=== PATIENT | female | born 1975 | race Caucasian/White ===

== ENCOUNTER 2017-03-08 17:58 | Observation (INO) | payer OTHER ==
[~2017-03-08] VITALS: Ht 165.1 cm; Wt 167.0 kg
[~2017-03-08 17:58] MED LIST: AZIT250T PO; HYDR-79 PO; HYDR-971 PO; SULF1TAB24 PO; TRAM50TA PO
--- NOTE | 2017-03-08 18:09 | EKG ---
[address] [address] Test Date: 2017-03-08 Test Time: 18:04:13 Pat Name: JEANNINE HORTON Department: Room: Gender: F Chainer: HILDA : 1975 Requested By: EDSJ Order Number: [id number] Reading MD: Cehpe Rueda Measurements Intervals [place] Rate: 94 P: 31 OH: 168 QRS: 38 QRSD: 88 T: 19 QT: 364 QTc: 461 Interpretive Statements SINUS RHYTHM Electronically Signed On 03-14-2017 9:34:43 CDT by Chepe Rueda
--- NOTE | 2017-03-08 18:12 | ED.ADGEN ---
Past History Past Medical History: Anxiety, Depression, Other Past Surgical History: Cholecystectomy, Hysterectomy, Other Smoking: Cigarettes Alcohol Use: None Drug Use: None Adult General Chief Complaint Chief Complaint " I ve been hurting constant since about 3 pm.. here in my chest... and upper gastric... this has been going on .. for a while off and on. .. I did have a Stress test by Dr. Johnson about 5 yrs ago for same symptoms.. they said it was just my weight... I see Dr. Bermeo for everything else.." HPI HPI Patient is a 41 year old female who presents with above hx and complaints of chest pain. Pt. is rated 5/10 now, earlier it was 10/10. Pt. is taking some new weight lost meds..."Truvision"- Niacin, B12, Calcium , Vitamin Misc and Green Tea Ext. Trimethylglycine, Cafeine, Yohimbine, Dendrobium Alkaloids, Theacrine, Hordenine, Evodiamine, Bengali Ginseng. Patient denies any trauma. Patient denies any travel. Patient denies any drug use. Patient does smoke. Patient currently not on any antihypertensive meds. Review of Systems Review of Systems Constitutional: Denies fever or chills [] Eyes: Denies change in visual acuity, redness, or eye pain [] HENT: Denies nasal congestion or sore throat [] Respiratory: Denies cough or shortness of breath [] Cardiovascular: No additional information not addressed in HPI [] GI: Denies abdominal pain, nausea, vomiting, bloody stools or diarrhea [] : Denies dysuria or hematuria [] Musculoskeletal: Denies back pain or joint pain [] Integument: Denies rash or skin lesions [] Neurologic: Denies headache, focal weakness or sensory changes [] Endocrine: Denies polyuria or polydipsia [] Family History Family History Patient has history of cardiac disease with grandfather at age 39 Current Medications Current Medications Current Medications Medications (Trade) Dose Ordered Sig/Sonu Start Time Stop Time Status Last Admin Dose Admin Aspirin (Children'S Aspirin) 324 mg 1X ONCE 03/08/17 18:45 03/08/17 18:46 DC 03/08/17 19:15 324 MG Enoxaparin Sodium (Lovenox 150mg Syringe) 150 mg 1X ONCE 03/08/17 18:45 03/08/17 18:46 DC 03/08/17 19:15 150 MG Famotidine (Pepcid) 20 mg 1X ONCE 03/08/17 18:45 03/08/17 18:46 DC 03/08/17 19:15 20 MG Lorazepam 1 mg 1 mg 1X ONCE 03/08/17 18:45 03/08/17 18:46 DC 03/08/17 20:00 1 MG Morphine Sulfate (Morphine 10mg Syringe) 10 mg 1X ONCE 03/08/17 21:00 03/08/17 21:01 DC 03/08/17 20:50 10 MG Nitroglycerin (Nitro-Bid Oint) 1 inch 1X ONCE 03/08/17 18:45 03/08/17 18:46 DC 03/08/17 19:10 1 INCH Sodium Chloride (Iv Sodium Chloride 0.9% 1,000ml) 1,000 ml @ 1,000 mls/hr Q1H 03/08/17 18:29 03/08/17 19:28 DC 03/08/17 20:00 1,000 MLS/HR Allergies Allergies Allergies Coded Allergies Type Severity Reaction Last Updated Verified No Known Drug Allergies 05/06/16 No Physical Exam Physical Exam Constitutional: Moderate distress, non-toxic appearance. [] HENT: Normocephalic, atraumatic, bilateral external ears normal, oropharynx moist, no oral exudates, nose normal. [] Eyes: PERRLA, EOMI, conjunctiva normal, no discharge. [] Glasses Neck: Normal range of motion, no tenderness, supple, no stridor. More than 17 inches circumference Cardiovascular: Tachycardia Heart rate regular rhythm, no murmur, Lungs & Thorax: Bilateral breath sounds equal at apexes with scattered wheezes on auscultation [] Abdomen: Bowel sounds normal, soft, no tenderness, no masses, no pulsatile masses. Obese. Old surgical scars. Rectal exam heme-negative Skin: Warm, dry, no erythema, no rash. [] Back: No tenderness, no CVA tenderness. [] Extremities: No tenderness, no cyanosis, no clubbing, ROM intact, trace ankle edema. No cording appreciated. Neurologic: Alert and oriented X 3, normal motor function, normal sensory function, no focal deficits noted. [] Psychologic: Affect anxious, judgement normal, mood depressed Current Patient Data Vital Signs Vital Signs Date Time Temp Pulse Resp B/P Pulse Ox O2 Delivery O2 Flow Rate FiO2 03/08/17 21:00 101 20 141/63 92 03/08/17 20:50 Room Air 03/08/17 17:58 98.2 Lab Results Laboratory Tests Test 03/08/17 18:10 03/08/17 19:42 Glucose (Fingerstick) 103mg/dL (70-99) H White Blood Count 8.9x10^3/uL (4.0-11.0) Red Blood Count 4.32x10^6/uL (3.50-5.40) Hemoglobin 12.3g/dL (12.0-15.5) Hematocrit 37.0% (36.0-47.0) Mean Corpuscular Volume 86fL (79-100) Mean Corpuscular Hemoglobin 28pg (25-35) Mean Corpuscular Hemoglobin Concent 33g/dL (31-37) Red Cell Distribution Width 13.2% (11.5-14.5) Platelet Count 293x10^3/uL (140-400) Neutrophils (%) (Auto) 53% (31-73) Lymphocytes (%) (Auto) 34% (24-48) Monocytes (%) (Auto) 8% (0-9) Eosinophils (%) (Auto) 4% (0-3) H Basophils (%) (Auto) 1% (0-3) Neutrophils # (Auto) 4.7x10^3uL (1.8-7.7) Lymphocytes # (Auto) 3.0x10^3/uL (1.0-4.8) Monocytes # (Auto) 0.7x10^3/uL (0.0-1.1) Eosinophils # (Auto) 0.4x10^3/uL (0.0-0.7) Basophils # (Auto) 0.1x10^3/uL (0.0-0.2) Prothrombin Time 9.6SEC (9.4-11.4) Prothrombin Time INR 0.9 (0.9-1.1) PTT 24SEC (23-33) D-Dimer (Nadine) 0.30mg/L (0.00-0.50) Maternal Serum HCG Beta Subunit 2mIU/mL (0-6) Sodium Level 142mmol/L (136-145) Potassium Level 3.8mmol/L (3.5-5.1) Chloride Level 109mmol/L (98-107) H Carbon Dioxide Level 24mmol/L (21-32) Anion Gap 9 (6-14) Blood Urea Nitrogen 11mg/dL (7-20) Creatinine 0.7mg/dL (0.6-1.0) Estimated GFR (Cockcroft-Gault) 92.7 Glucose Level 113mg/dL (70-99) H Calcium Level 8.3mg/dL (8.5-10.1) L Magnesium Level 2.0mg/dL (1.8-2.4) Total Bilirubin 0.2mg/dL (0.2-1.0) Direct Bilirubin 0.1mg/dL (0.0-0.2) Aspartate Amino Transferase (AST) 11U/L (15-37) L Alanine Aminotransferase (ALT) 28U/L (14-59) Alkaline Phosphatase 96U/L (46-116) Creatine Kinase 44U/L (26-192) Creatine Kinase MB (Mass) 0.5ng/mL (0.0-3.6) Creatine Kinase MB Relative Index 1.1% (0-4) Troponin I Quantitative < 0.017ng/mL (0-0.055) FR-Buq-D-Type Natriuretic Peptide 22pg/mL (0-124) Total Protein 6.4g/dL (6.4-8.2) Albumin 3.1g/dL (3.4-5.0) L Lipase 234U/L (73-393) EKG EKG My interpretation of EKG shows a sinus rhythm at 94. No findings acute STEMI of contralateral changes [] Radiology/Procedures Radiology/Procedures My interpretation of chest x-ray shows no no acute cardiopulmonary findings. Some basilar atelectasis. [] Course & Med Decision Making Course & Med Decision Making Pertinent Labs and Imaging studies reviewed. (See chart for details) Discussed presentation, testing and treatment with , will admit for further eval. and tx. with consult to Cardiology- McSweyn. [] Final Impression Final Impression 1.Chest Pain[] 2. Hypertension 3. Morbid obesity 4. Tobacco Use Problems: Dragon Disclaimer Dragon Disclaimer This electronic medical record was generated, in whole or in part, using a voice recognition dictation system. ADIS GREENFIELD MD Mar 08, 2017 18:12
[2017-03-08] MEDS ORDERED: IV NORMAL SALINE 1,000ML 1,000 ML IV SCH (18:29)
[2017-03-08] MEDS ORDERED: LORAZEPAM 2 MG/ML VIAL IV ONE (18:45)
[2017-03-08] MEDS ORDERED: MORPHINE SULFATE 10 MG/ML SYRINGE. SQ ONE ×2 (18:45→21:00)
[2017-03-08] MEDS ORDERED: ENOXAPARIN ** NOTE DOSE ** SYRINGE SQ ONE (18:45)
[2017-03-08] MEDS ORDERED: NITROGLYCERIN OINT 1 GM PACKET. TP ONE (18:45)
[2017-03-08] MEDS ORDERED: ASPIRIN 81 MG TAB.CHEW PO ONE (18:45)
[2017-03-08] MEDS ORDERED: FAMOTIDINE 20 MG TABLET PO ONE (18:45)
[2017-03-08 19:56] LABS: BASO # 0.1 x10^3/uL (0.0-0.2); BASO % 1 % (0-3); EOS # 0.4 x10^3/uL (0.0-0.7); EOS % 4 % (0-3); HEMOGLOBIN 12.3 g/dL (12.0-15.5); LYMPH % 34 % (24-48); MEAN CORPUSCULAR HEMOGLOBIN 28 pg (25-35); MEAN CORPUSCULAR HGB CONC 33 g/dL (31-37); MEAN CORPUSCULAR VOLUME 86 fL (79-100); MONO # 0.7 x10^3/uL (0.0-1.1); MONO % 8 % (0-9); NEUT # 4.7 x10^3uL (1.8-7.7); NEUT % 53 % (31-73); PLATELET COUNT 293 x10^3/uL (140-400); RED BLOOD COUNT 4.32 x10^6/uL (3.50-5.40); RED CELL DISTRIBUTION WIDTH 13.2 % (11.5-14.5); WHITE BLOOD COUNT 8.9 x10^3/uL (4.0-11.0)
[2017-03-08 20:21] LABS: ALBUMIN 3.1 g/dL (3.4-5.0); CALCIUM 8.3 mg/dL (8.5-10.1); CREATININE 0.7 mg/dL (0.6-1.0); DIRECT BILIRUBIN 0.1 mg/dL (0.0-0.2); GFR 92.7; POTASSIUM 3.8 mmol/L (3.5-5.1); TOTAL BILIRUBIN 0.2 mg/dL (0.2-1.0); TOTAL PROTEIN 6.4 g/dL (6.4-8.2)
[2017-03-08] MEDS ORDERED: KETOROLAC 60 MG/2 ML VIAL. IM PRN (21:45)
[2017-03-08 22:15] VITALS: BP 170/83
[2017-03-08 22:37] LABS: BARBITURATES NEG (NEG); BENZODIAZEPINES NEG (NEG); CANNABINOIDS NEG (NEG); COCAINE NEG (NEG); METHADONE NEG (NEG); OPIATES POS (NEG); PHENCYCLIDINE NEG (NEG)
[2017-03-08 22:38] LABS: AMPHETAMINE/METHAMPHETAMINE NEG (NEG)
[2017-03-08 22:42] LABS: BILIRUBIN,URINE NEG (NEG); CLARITY,URINE CLEAR; COLOR,URINE STRAW; GLUCOSE,URINE NEG (NEG); NITRITE,URINE NEG (NEG); UROBILINOGEN,URINE 0.2 mg/dL (0.2 mg/dL)
[2017-03-08 22:43] LABS: AMORPHOUS SEDIMENT,UR PRESENT /HPF; BACTERIA,URINE FEW /HPF (0-FEW); RBC,URINE 0 /HPF (0-2); SQUAMOUS EPITHELIAL CELL,UR OCC /LPF; WBC,URINE OCC /HPF (0-4)
[2017-03-08] MEDS: ONDANSETRON PF 4 MG/2 ML VIAL. IV PRN (23:05)
[2017-03-08] MEDS: IV RINGERS SOLUTION,LACTATED 1,000 ML IV SCH (23:05)
[2017-03-08] MEDS ORDERED: CALC300T4 PO (23:59)
[2017-03-09] MEDS ORDERED: [UNRECOGNIZED DRUG - OTHER] PO (00:01)
--- NOTE | 2017-03-09 00:11 | ACF ---
Admission Criteria Forms CHEST PAIN Clinical Indications for Admission to Inpatient Care (Place 'X' for any and all applicable criteria): Admission is indicated for chest pain and ANY ONE of the following(1)(2)(3)(4)(5 ): [ ]I. Angina with acute coronary syndrome (Also use Myocardial Infarction or Angina guideline) [ ]II. Hemodynamic instability [ ]III. Angina needing acute intervention as indicated by ALL of the following( 11)(12): [ ]a) Unstable angina is present as indicated by angina that is ANY ONE of the following: [ ]i) New onset [ ]ii) Nocturnal [ ]iii) Prolonged at rest [ ]iv) Progressive [ ]b) Angina warrants acute intervention as indicated by ANY ONE of the following: [ ]i) Recurrent angina (e.g, not responding as previously to treatment) [ ]ii) Angina at rest or with low-level activities despite initial medical therapy [ ]iii) New or presumably new ST-segment depression on ECG [ ]iv) Signs or symptoms of heart failure (eg, dyspnea, pulmonary edema) [ ]v) New or worsening mitral regurgitation [ ]vi) Hemodynamic instability [ ]vii) Dangerous arrhythmia (eg, sustained ventricular tachycardia) [ ]viii) History of percutaneous coronary intervention within 6 months [ ]ix) History of coronary artery bypass graft surgery [ ]x) KIMBER risk score of 2 or greater[A] [ ]xi) History of Diabetes(14) [ ]xii) High-risk cardiac ischemia findings on noninvasive testing (e.g, echocardiogram, treadmill testing, nuclear scan) [ ]xiii) Chronic renal insufficiency (ie, estimated GFR less than 60 mL/min/1.732m) [ ]xiv) Left ventricular ejection fraction less than 40% [ ]IV. Evidence of RI (eg, cardiac biomarkers positive, ST-segment elevation on ECG) also use Myocardial Infarction Criteria Form. [ ]V. Pulmonary edema [ ]. Respiratory distress [ ]VII. Chest pain indicative of serious diagnosis other than coronary artery disease (eg, aortic dissection) [ ]VIII. Contraindications and/or Inappropriate clinical situations for Observational Care in patients with Chest Pain, when ANY ONE of the following is required: [ ]a) Patient with risk factor for pulmonary embolism, acute coronary syndrome and myocardial infarction (18) [ ]b) Patient with Pulmonary embolism require an average LOS of 4.3 days, therefore emergency department observation management is inappropriate 18,23 [ ]c) Painful condition/s in the elderly, have the highest rate of recidivism after emergency department observation management (10.8%) 20,21,22 [ ]d) Elevated cardiac biomarker requires intensive and exhaustive care (19) [X]IX. General contraindications and/or Inappropriate clinical situations for Observational Care in patients with Chest Pain, when ANY ONE of the following is required: [X]a) Prediction of prolongation of LOS based on ANY ONE of the following may be considered as a contraindication for observational care 2, 3, 4, 5, 6, 7, 8, 9, 10, 11 [ ]i) Age > 65 yrs. [ ]ii) Patient arriving by ambulance [ ]iii) Patient with high acuity [X]iv) Patient requiring vital sign monitoring [ ]v) Patient on IV medication [ ]b) Systolic blood pressures 180mmHg 3,12 [ ]c) Patient with altered mental status including delirium and other alteration of consciousness, (3) [ ]d) Patient whose discharge disposition will be to a intermediate home or rehabilitation home should not be managed in Emergency Department Observation Unit. CMS rule requires 3 days hospital stay before such placement. 3,13 [ ]e) Patient with failure to thrive due to broad array of etiologies 3,16,17 [ ]f) Inability to ambulate 3,14 Extended stay beyond goal length of stay may be needed for (1)(28): [ ]a) Specific condition diagnosed after evaluation (eg, pulmonary embolism, aortic dissection) [ ]b) Unstable angina [ ]c) Continued suspicion of acute coronary syndrome with inability to complete needed cardiac evaluation (eg, patient clinically unable to undergo stress testing) [ ]d) Myocardial infarction (Contents from ANGINA and CHEST PAIN clinical indications for admission to inpatient care have been integrated in this form) The original [facility] content created by [employer] has been revised. The portions of the content which have been revised are identified through the use of italic text or in bold, and [facility] has neither reviewed nor approved the modified material. All other unmodified content is copyright [facility]. Please see references footnoted in the original [facility] edition 2016 Admission Criteria Met?: Yes CASEY CARR Mar 09, 2017 00:11
[2017-03-09] MEDS: IV RINGERS SOLUTION,LACTATED 1,000 ML IV SCH ×3 (04:46→16:30)
[2017-03-09] MEDS ORDERED: IPRATRPIUM/ALBUTEROL 0.5/2.5MG 3 ML NEBU. ONE (04:47)
[2017-03-09 05:12] VITALS: BP 126/86
[2017-03-09] MEDS: IPRATRPIUM/ALBUTEROL 0.5/2.5MG 3 ML NEBU. NEB SCH ×3 (05:31→15:47)
--- NOTE | 2017-03-09 08:04 | RAD ---
Chest, 2 views, 03/08/2017: History: Chest pain Comparison is made to a study from 09/28/2016. The heart size and pulmonary vascularity are normal. There is mild bibasilar linear atelectasis and/or scarring. The lungs are otherwise clear. There is no evidence of pleural fluid. Minimal spurring is present in the spine. IMPRESSION: Mild bibasilar linear atelectasis and/or scarring.
[2017-03-09] MEDS: ONDANSETRON PF 4 MG/2 ML VIAL. IV PRN (08:46)
[2017-03-09] MEDS: KETOROLAC 15 MG/ML VIAL. IV PRN ×2 (08:47→17:26)
[2017-03-09] MEDS: NITROGLYCERIN OINT 1 GM PACKET. TP SCH ×2 (08:48→13:56)
[2017-03-09] MEDS ORDERED: ENOXAPARIN ** NOTE DOSE ** SYRINGE SQ SCH (09:00)
[2017-03-09] MEDS ORDERED: ASPIRIN 81 MG TAB.CHEW PO SCH (09:00)
[2017-03-09 09:47] LABS: BASO % 1 % (0-3); EOS # 0.2 x10^3/uL (0.0-0.7); EOS % 2 % (0-3); HEMATOCRIT 35.2 % (36.0-47.0); HEMOGLOBIN 11.5 g/dL (12.0-15.5); LYMPH # 2.2 x10^3/uL (1.0-4.8); LYMPH % 28 % (24-48); MEAN CORPUSCULAR HEMOGLOBIN 28 pg (25-35); MEAN CORPUSCULAR HGB CONC 33 g/dL (31-37); MEAN CORPUSCULAR VOLUME 87 fL (79-100); MONO # 0.5 x10^3/uL (0.0-1.1); MONO % 7 % (0-9); NEUT # 4.8 x10^3uL (1.8-7.7); NEUT % 63 % (31-73); PLATELET COUNT 265 x10^3/uL (140-400); RED BLOOD COUNT 4.06 x10^6/uL (3.50-5.40); RED CELL DISTRIBUTION WIDTH 13.3 % (11.5-14.5); WHITE BLOOD COUNT 7.7 x10^3/uL (4.0-11.0)
[2017-03-09 09:51] LABS: ALBUMIN/GLOBULIN RATIO 0.9 (1.0-1.7); CALCIUM 8.2 mg/dL (8.5-10.1); CREATININE 0.7 mg/dL (0.6-1.0); GFR 92.7; POTASSIUM 3.9 mmol/L (3.5-5.1); TOTAL BILIRUBIN 0.3 mg/dL (0.2-1.0); TOTAL PROTEIN 6.2 g/dL (6.4-8.2)
--- NOTE | 2017-03-09 09:54 | PDOC2 ---
CONSULT Date of Admission DATE: 03/09/17 TIME: 09:53 Reason for Consult: chest pain Problem List Problems Medical Problems: (1) Chest pain Status: Acute History of Present Illness Ms Slade is a morbidly obese, 41 year old white female who presents for evaluation of chest pain. She reports chest pressure that started yesterday while she was lying down. She describes a heavy, twisting sensation that radiated from her epigastric to mid sternal area, up into her left neck and across her shoulders. She reports increase in discomfort on getting up, with associated dyspnea and diaphoresis. She states discomfort lasted about 10 minutes and resolved spontaneously. She complains of lightheadedness, "being in a fog" sensation that continued after. She reports that pain has continued to come and go since presenting to the ED but less severe. She had recently started on an over the counter diet supplement for weight loss. She says that since that time she has been fatigued, dyspneic on minimal exertion and having palpitations or sensation of her heart racing. She reports prior to that time she had none of these symptoms. She reports her functional capacity is limited to less than 50 feet before shortness of breath and fatigue or feeling like her body is "weighted". She complains of orthopnea and has her HOB at about 45 degrees for comfort. She complains of edema which is worse at the end of the day. Blood pressure on presentation to ED was significantly elevated at 197/ 102 mmHg. Past Medical History PMHX/PSHX Acid reflux, anxiety and depression, lap band with apparent complications resulting in esophageal stricture and requiring reversal. Ventral hernia repair with mesh. She denies any additional medical problems and reports taking no medications other than the diet supplement. She does report a stress test with Dr Johnson about 5 years ago that was reportedly normal. She has additional history of cholecystectomy, c-sections and hysterectomy. Past Surgical History see above Family History HTN Social History ~1ppd smoker, she denies significant ETOH or any illicit drug use. Current Medications Current Medications Aspirin (Children'S Aspirin) 324 mg 1X ONCE PO Last administered on 03/08/17 19:15; Start 03/08/17 at 18:45; Stop 03/08/17 at 18:46; Status DC Lorazepam 1 mg 1 mg 1X ONCE IV Last administered on 03/08/17 20:00; Start at 18:45; Stop 03/08/17 at 18:46; Status DC Sodium Chloride (Iv Sodium Chloride 0.9% 1,000ml) 1,000 ml @ 1,000 mls/hr Q1H IV Last administered on 03/08/17 20:00; Start 03/08/17 at 18:29; Stop at 19:28; Status DC Famotidine (Pepcid) 20 mg 1X ONCE PO Last administered on 03/08/17 19:15; Start 03/08/17 at 18:45; Stop 03/08/17 at 18:46; Status DC Enoxaparin Sodium (Lovenox 150mg Syringe) 150 mg 1X ONCE SQ Last administered on 03/08/17 19:15; Start 03/08/17 at 18:45; Stop 03/08/17 at 18:46; Status DC Nitroglycerin (Nitro-Bid Oint) 1 inch 1X ONCE TP Last administered on 19:10; Start 03/08/17 at 18:45; Stop 03/08/17 at 18:46; Status DC Morphine Sulfate (Morphine 10mg Syringe) 10 mg 1X ONCE SQ Last administered on 03/08/17 19:15; Start 03/08/17 at 18:45; Stop 03/08/17 at 18:46; Status DC Morphine Sulfate (Morphine 10mg Syringe) 10 mg 1X ONCE SQ Last administered on 03/08/17 20:50; Start 03/08/17 at 21:00; Stop 03/08/17 at 21:01; Status DC Ondansetron HCl (Zofran) 4 mg PRN Q4HRS PRN IV NAUSEA/VOMITING Last administered on 03/09/17 08:46; Start 03/08/17 at 21:45; Stop 03/09/17 at 21:44 Albuterol/ Ipratropium (Duoneb) 3 ml RTQID NEB Last administered on 03/09/17 05:31; Start 03/09/17 at 08:00; Stop 03/10/17 at 07:59 Aspirin (Children'S Aspirin) 81 mg DAILY PO Last administered on 03/09/17 08: 48; Start 03/09/17 at 09:00 Enoxaparin Sodium (Lovenox 100mg Syringe) 150 mg BID SQ Last administered on 08:45; Start 03/09/17 at 09:00 Nitroglycerin 1 inch 1 inch TID TP Last administered on 03/09/17 08:48; Start 03/09/17 at 09:00 Lactated Ringer's (Iv Lactated Ringers) 1,000 ml @ 160 mls/hr Q6H15M IV Last administered on 03/09/17 04:46; Start 03/08/17 at 21:45 Ketorolac Tromethamine (Toradol) 60 mg PRN 1X PRN IM PAIN Last administered on 03/08/17 23:06; Start 03/08/17 at 21:45; Stop 03/13/17 at 21:44 Albuterol/ Ipratropium (Duoneb) 3 ml STK-MED ONCE .ROUTE ; Start 03/09/17 at 04: 47; Stop 03/09/17 at 04:48; Status DC Ketorolac Tromethamine (Toradol) 30 mg PRN Q6HRS PRN IV PAIN Last administered on 03/09/17 08:47; Start 03/09/17 at 08:30; Stop 03/14/17 at 08:29 Active Scripts Active Reported [Truvision] 1 Cap PO TID Tums X-Str (Calcium Carbonate) 300 Mg Tab.chew 300 Mg PO PRN Q4-6HRS PRN Allergies: Coded Allergies: No Known Drug Allergies (Unverified , 05/06/16) Review of System as per HPI General: Alert, Oriented X3, Cooperative, No acute distress HEENT: Atraumatic, EOMI Lungs: Clear to auscultation Heart: Regular rate, Normal S1, Normal S2, Other (no obvious murmurs, no gallops, clicks or rubs) Abdomen: Normal bowel sounds, Soft, No tenderness Extremities: No cyanosis, Normal pulses, Other (1+ edema) Neuro: Normal speech, Strength at 5/5 X4 ext Psych/Mental Status: Mental status NL, Mood NL VITALS Vital Signs Date Time Temp Pulse Resp B/P Pulse Ox O2 Delivery O2 Flow Rate FiO2 03/09/17 08:48 84 126/86 03/09/17 05:33 96 Room Air 03/09/17 05:12 97.6 18 Labs Laboratory Tests Test 03/08/17 18:10 03/08/17 19:42 03/08/17 22:11 03/09/17 09:20 Glucose (Fingerstick) 103mg/dL (70-99) White Blood Count 8.9x10^3/uL (4.0-11.0) 7.7x10^3/uL (4.0-11.0) Red Blood Count 4.32x10^6/uL (3.50-5.40) 4.06x10^6/uL (3.50-5.40) Hemoglobin 12.3g/dL (12.0-15.5) 11.5g/dL (12.0-15.5) Hematocrit 37.0% (36.0-47.0) 35.2% (36.0-47.0) Mean Corpuscular Volume 86fL (79-100) 87fL (79-100) Mean Corpuscular Hemoglobin 28pg (25-35) 28pg (25-35) Mean Corpuscular Hemoglobin Concent 33g/dL (31-37) 33g/dL (31-37) Red Cell Distribution Width 13.2% (11.5-14.5) 13.3% (11.5-14.5) Platelet Count 293x10^3/uL (140-400) 265x10^3/uL (140-400) Neutrophils (%) (Auto) 53% (31-73) 63% (31-73) Lymphocytes (%) (Auto) 34% (24-48) 28% (24-48) Monocytes (%) (Auto) 8% (0-9) 7% (0-9) Eosinophils (%) (Auto) 4% (0-3) 2% (0-3) Basophils (%) (Auto) 1% (0-3) 1% (0-3) Neutrophils # (Auto) 4.7x10^3uL (1.8-7.7) 4.8x10^3uL (1.8-7.7) Lymphocytes # (Auto) 3.0x10^3/uL (1.0-4.8) 2.2x10^3/uL (1.0-4.8) Monocytes # (Auto) 0.7x10^3/uL (0.0-1.1) 0.5x10^3/uL (0.0-1.1) Eosinophils # (Auto) 0.4x10^3/uL (0.0-0.7) 0.2x10^3/uL (0.0-0.7) Basophils # (Auto) 0.1x10^3/uL (0.0-0.2) 0.0x10^3/uL (0.0-0.2) Prothrombin Time 9.6SEC (9.4-11.4) Prothromb Time International Ratio 0.9 (0.9-1.1) Activated Partial Thromboplast Time 24SEC (23-33) D-Dimer (Nadine) 0.30mg/L (0.00-0.50) Maternal Serum HCG Beta Subunit 2mIU/mL (0-6) Sodium Level 142mmol/L (136-145) Potassium Level 3.8mmol/L (3.5-5.1) Chloride Level 109mmol/L (98-107) Carbon Dioxide Level 24mmol/L (21-32) Anion Gap 9 (6-14) Blood Urea Nitrogen 11mg/dL (7-20) Creatinine 0.7mg/dL (0.6-1.0) Estimated GFR (Cockcroft-Gault) 92.7 Glucose Level 113mg/dL (70-99) Calcium Level 8.3mg/dL (8.5-10.1) Magnesium Level 2.0mg/dL (1.8-2.4) Total Bilirubin 0.2mg/dL (0.2-1.0) Direct Bilirubin 0.1mg/dL (0.0-0.2) Aspartate Amino Transf (AST/SGOT) 11U/L (15-37) Alanine Aminotransferase (ALT/SGPT) 28U/L (14-59) Alkaline Phosphatase 96U/L (46-116) Creatine Kinase 44U/L (26-192) Creatine Kinase MB (Mass) 0.5ng/mL (0.0-3.6) Creatine Kinase MB Relative Index 1.1% (0-4) Troponin I Quantitative < 0.017ng/mL (0-0.055) AR-Rum-Y-Type Natriuretic Peptide 22pg/mL (0-124) Total Protein 6.4g/dL (6.4-8.2) Albumin 3.1g/dL (3.4-5.0) Lipase 234U/L (73-393) Urine Collection Type Unknown Urine Color Straw Urine Clarity Clear Urine pH 5.5 Urine Specific [place] 1.010 Urine Protein Neg (NEG-TRACE) Urine Glucose (UA) Negmg/dL (NEG) Urine Ketones (Stick) Negmg/dL (NEG) Urine Blood Neg (NEG) Urine Nitrite Neg (NEG) Urine Bilirubin Neg (NEG) Urine Urobilinogen Dipstick 0.2mg/dL (0.2 mg/dL) Urine Leukocyte Esterase Neg (NEG) Urine RBC 0/HPF (0-2) Urine WBC Occ/HPF (0-4) Urine Squamous Epithelial Cells Occ/LPF Urine Amorphous Sediment Present/HPF Urine Bacteria Few/HPF (0-FEW) Urine Opiates Screen Pos (NEG) Urine Methadone Screen Neg (NEG) Urine Barbiturates Neg (NEG) Urine Phencyclidine Screen Neg (NEG) Urine Amphetamine/Methamphetamine Neg (NEG) Urine Benzodiazepines Screen Neg (NEG) Urine Cocaine Screen Neg (NEG) Urine Cannabinoids Screen Neg (NEG) Urine Ethyl Alcohol Neg (NEG) Images EKG - sinus rhythm with non specific t abn. Assessment/Plan 1. chest pain with mixed features - will repeat cardiac enzymes, check echo and lipids, start beta blake and PPI. If enzymes remain normal would consider outpatient stress testing. 2. accelerated hypertension - antihypertensives as noted, check echo 3. GERD - PPI 4. palpitations - consider outpatient event monitoring. Problems: DIMA PALMA APRN Mar 09, 2017 09:54
[2017-03-09 10:21] VITALS: BP 138/80
[2017-03-09] MEDS ORDERED: LIDO:MAALOX 1:1 20 ML SINGLE DOSE PO PRN (11:00)
[2017-03-09] MEDS ORDERED: PANTOPRAZOLE 40 MG TABLET. PO SCH (11:00)
[2017-03-09] MEDS ORDERED: METOPROLOL TART IMMED RELEASE 25 MG TABLET PO SCH (11:00)
[2017-03-09] MEDS ORDERED: ASA/APAP/CAFFEINE 250/250/65MG TABLET. PO PRN (12:30)
[2017-03-09 14:16] LABS: THYROID STIM HORMONE (TSH) 2.149 uIU/mL (0.358-3.740)
[2017-03-09 15:15] VITALS: BP 113/65
[2017-03-09] MEDS ORDERED: ESOM40CA PO (16:30)
--- NOTE | 2017-03-09 16:36 | CARD ---
APPROVED REPORT EXAM: Two-dimensional and M-mode echocardiogram with Doppler and color Doppler. Other Information Quality : Technically Limited Rhythm : NSRTechnically limited study due to body habitus. INDICATION Hypertension/HCVD Chest Pain 2D DIMENSIONS RVDd2.4 (2.9-3.5cm)Left Atrium(2D)2.4 (1.6-4.0cm) IVSd1.1 (0.7-1.1cm)Aortic Root(2D)2.9 (2.0-3.7cm) LVDd4.8 (3.9-5.9cm)LVOT Diameter2.4 (1.8-2.4cm) PWd1.0 (0.7-1.1cm)LVDs2.9 (2.5-4.0cm) FS (%) 39.8 %SV74.5 ml LVEF(%)70.3 (>50%) Aortic Valve AoV Peak Daron.141.1cm/sAoV VTI28.7cm AO Peak GR.8.0mmHgLVOT Peak Daron.110.5cm/s LVOT VTI 20.54cmAO Mean GR.5mmHg TIFFANIE (VMAX)3.02et3VNW (VTI)3.35cm2 Mitral Valve MV E Ceboocbl43.9cm/sMV DECEL [id number] MV A Bzwcqjet00.0cm/sMV FMM74yp E/A Ratio1.3MV A Eysnnked877wx MVA (PHT)3.02cm2 Tricuspid Valve TR P. Qushvjws910un/sRAP HTETPPZT5fqXr TR Peak Gr.82yzLvFKZN49otZl LEFT VENTRICLE The left ventricle is normal size. There is normal left ventricular wall thickness. Left ventricle sy stolic function is normal. The Ejection Fraction is 65-70%. There is normal LV segmental wall motion. The left ventricular diastolic function and filling is normal for age. RIGHT VENTRICLE The right ventricle is normal size. The right ventricular systolic function is normal. ATRIA The left atrium size is normal. The right atrium size is normal. The interatrial septum is intact wit h no evidence for an atrial septal defect or patent foramen ovale as noted on 2-D or Doppler imaging. AORTIC VALVE The aortic valve is normal in structure and function. The aortic valve is trileaflet. Doppler and Col or Flow revealed no significant aortic regurgitation. There is no significant aortic valvular stenosi s. MITRAL VALVE The mitral valve is normal in structure and function. There is no mitral valve stenosis. Doppler and Color Flow revealed trivial mitral regurgitation. TRICUSPID VALVE The tricuspid valve is not well visualized. Doppler and Color Flow revealed trace tricuspid regurgita tion. The PA pressure was estimated at 23 mmHg. There is no tricuspid valve stenosis. PULMONIC VALVE The pulmonic valve is not well visualized. Doppler and Color Flow revealed no pulmonic valvular regur gitation. There is no pulmonic valvular stenosis. GREAT VESSELS The aortic root is normal in size. Pulmonary veins not recorded. The IVC was not visualized. PERICARDIAL EFFUSION There is no evidence of significant pericardial effusion. Critical Notification Critical Value: No <Conclusion> Left ventricle systolic function is normal. The Ejection Fraction is 65-70%. There is normal LV segmental wall motion. Doppler and Color Flow revealed trace tricuspid regurgitation. The PA pressure was estimated at 23 mmHg. There is no evidence of significant pericardial effusion.
[2017-03-09] MEDS ORDERED: METO25TA4 PO (17:33)
[2017-03-09] MEDS ORDERED: KETOROLAC 30 MG/ML VIAL. IM ONE (17:45)
--- NOTE | 2017-03-09 19:52 | SSS ---
ADMIT DATE: 03/09/2017 HISTORY OF PRESENT ILLNESS: The patient is a 41-year-old female patient who came to the Emergency Room complaining of chest pain that is mostly retrosternal started while lying in bed. She describes a heavy twisting sensation that had radiated from her epigastric to the mid sternal area up into her left neck and across the shoulder. She reports increasing discomfort on getting up with associated dyspnea and diaphoresis. She has also some nausea, but no vomiting. She also complained of some form of lightheadedness. She stated that her pain lasted initially about 15 minutes and then again started coming intermittent and apparently by the time she came to the Emergency Room, she was given nitroglycerin and that alleviated the pain, but caused severe headache. She is not known to have high blood pressure but apparently her blood pressure was extremely high when she arrived to the Emergency Room at 197/102. She was basically investigated initially in the Emergency Room and her first troponin was less than 0.07 and was admitted to do 2 more sets of cardiac enzymes, check her fasting lipid profile and consult the lining parts sewer. She did have actually 3 sets of cardiac enzymes that ruled out myocardial infarction. Her fasting lipid profile showed that her total cholesterol was 163, LDL was 102 and her ____ was 34. Her EKG showed sinus rhythm, nonspecific T abnormalities. She was seen by the lining parts sewer and they recommended to do an echocardiogram and started her on proton pump inhibitor and who will follow with the Cardiology office in 1 month's time. PAST MEDICAL HISTORY: Significant for morbid obesity. PAST SURGICAL HISTORY: Significant for LAP BAND, two C-sections, cholecystectomy, ventral hernia repair and appendectomy. ALLERGIES: She has no known drug allergies. MEDICATIONS: She is mostly on TruVision for weight loss and Tums. FAMILY HISTORY: She has one brother younger and healthy. Her father is alive at age of 65 and is known to have hypertension, morbid obesity and obstructive sleep apnea. Her mother is alive at age of 64 and is known to have hypertension. SOCIAL HISTORY: She is , has 2 sons and 1 daughter. She smokes 1 pack in 2 weeks' time. She does not drink alcohol or use drugs. 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 REVIEW OF SYSTEMS: The patient denied any blurring of vision, cataract, glaucoma or macular degeneration. Denied any earache, tinnitus or sensorineural deafness. Denied any nosebleeds, stuffy nose or postnasal drip. Denied any sore throat. Did complain of sore tongue, nausea and diarrhea, but no vomiting. Did have some blood in her stool according to her, but denied any hematemesis. Denied any dysuria, frequency or hematuria. PHYSICAL EXAMINATION: GENERAL: On arrival to the Emergency Room she had no pallor, jaundice, cyanosis, or thyromegaly. No jugular venous distention. No limb edema. VITAL SIGNS: Her heart rate was 96, blood pressure 158/104, temperature was 98.2, respiratory rate was 18 and oxygen saturation was 99% on room air. HEAD, EYES, EARS, NOSE AND THROAT: Showed normocephalic, atraumatic. NECK: Supple. HEART: Showed normal first and second heart sounds with no gallop, rub or murmur. CHEST: Clear to auscultation. No crepitation or rhonchi. ABDOMEN: Distended, soft, nontender. NEUROLOGIC: She was grossly intact. LABORATORY DATA: Showed a serum sodium 142, potassium 3.8, chloride 109, bicarbonate 24, anion gap of 9, BUN 11, creatinine 0.7, estimated GFR was 93 mL per minute. Her glucose was 113. Calcium was 8.3. Total bilirubin, AST, ALT, alkaline phosphatase were normal. Total protein was 6.4, albumin 3.1. Lipase was 234. She has 2 sets of cardiac enzyme and both of them showed troponin to be less than 0.17. Her white cell count was 8900, hemoglobin 12.3, hematocrit 37, MCV 86 and platelet count of 293,000. Her prothrombin time was 9.6, INR of 0.9. Her PTT was 24 and D-dimer was 0.3 mg/dL. Urinalysis was unremarkable. Toxicology screen was positive for opiates, negative for methadone, barbiturates, phencyclidine, amphetamine, methamphetamine, benzodiazepine, cocaine, cannabinoids and ethyl alcohol. Her chest x-ray showed mild bibasilar linear atelectasis and/or scarring. Her EKG showed that she was in sinus rhythm with nonspecific T-wave abnormalities. She apparently has had an echocardiogram done, the results of which is still pending. According to the lining parts sewer, the patient can be discharged home with proton pump inhibitor to follow with him in 4 weeks' time. FINAL DISCHARGE DIAGNOSES: Atypical chest pain, morbid obesity and gastroesophageal reflux disease. DARION MATT MD DR: LIV/eb JOB#: [id number] / [id number]
[2017-03-10 03:08] LABS: HEMOGLOBIN A1C 5.1 % (4.8-5.6)
== END 2017-03-09 18:46 | disposition home or self-care (01) ==
LOC: ER 17:58 → INTOOBSV 21:39 → 1 SOUTH 21:39
PROVIDERS: ADMIT Internal Medicine; ATTEND Internal Medicine
DX: R07.89 Other chest pain (principal); E66.01 Morbid (severe) obesity due to excess calories; K21.9 Gastro-esophageal reflux disease without esophagitis; F32.9 Major depressive disorder, single episode, unspecified; I10 Essential (primary) hypertension; R00.2 Palpitations; F41.9 Anxiety disorder, unspecified; F17.210 Nicotine dependence, cigarettes, uncomplicated; Z90.49 Acquired absence of other specified parts of digestive tract; Z82.49 Family history of ischemic heart disease and other diseases of the circulatory system
CPT/HCPCS: 36415; 71020; 80048; 80053; 80061; 80076; 81001; 82553; 82947; 83036; 83690; 83735; 83880; 84443; 84484; 84702; 85027; 85379; 85610; 85730; 93005; 93306; 94640; 96361; 96372; 96374; 96375; 96376; 99285; 99406; G0238; G0378; G0481; J1650; J1885; J2060; J2270; J2405; J7120; J7620; G0379; J7030

== ENCOUNTER 2017-05-24 22:35 | Emergency (ER) | payer OTHER ==
[~2017-05-24 22:35] MED LIST changes: +CALC300T4 PO; +ESOM40CA PO; +METO25TA4 PO; +[UNRECOGNIZED DRUG - OTHER] PO
[2017-05-24 23:30] VITALS: BP 165/109
[2017-05-24] MEDS ORDERED: oxyCODONE/APAP 5/325 1 TAB TABLET PO ONE (23:30)
--- NOTE | 2017-05-25 00:02 | RAD ---
3 views right knee Indication: RT KNEE PAIN S/P FALL, PAIN TO BACK OF KNEE, ER PHYSICIAN REQUESTING OVER READ. FINDINGS: There is no fracture or dislocation. Joint spaces are well-maintained. No evidence for joint effusion. 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 IMPRESSION: Negative for fracture or dislocation. Electronically signed by: Farhat Merritt MD (05/24/2017 11:59 PM) [facility]
--- NOTE | 2017-05-25 00:09 | PHYS DOC ---
Past History Past Medical History: Anxiety, Depression, Other Past Surgical History: Cholecystectomy, Hysterectomy, Other Smoking: Cigarettes Alcohol Use: None Drug Use: None Adult General Chief Complaint Chief Complaint: KNEE INJURY HPI HPI Patient is a 41-year-old female presenting to the emergency department for evaluation of left knee pain that has been going on for 3 days. She says that she fell 3 weeks ago and now it hurts to ambulate. She says that she hit up against something and now she has a bruise on her left calf and thigh. She is able to ambulate on her leg but she says it is very painful to do so. There is no fevers chills nausea vomiting or other systemic symptoms. Review of Systems Review of Systems Constitutional: Denies fever or chills [] Respiratory: Denies cough or shortness of breath [] GI: Denies abdominal pain, nausea, vomiting, bloody stools or diarrhea [] Musculoskeletal: Denies back pain. + L knee joint pain [] Integument: Denies rash or skin lesions [] Neurologic: Denies headache, focal weakness or sensory changes [] Current Medications Current Medications Current Medications Medications (Trade) Dose Ordered Sig/Sonu Start Time Stop Time Status Last Admin Dose Admin Oxycodone/ Acetaminophen (Percocet 5/325) 2 tab 1X ONCE 05/24/17 23:30 05/24/17 23:31 DC 05/24/17 23:47 2 TAB Allergies Allergies Allergies Coded Allergies Type Severity Reaction Last Updated Verified No Known Drug Allergies 05/06/16 No Physical Exam Physical Exam Constitutional: Well developed, well nourished, no acute distress, non-toxic appearance. [] Cardiovascular:Heart rate regular rhythm, no murmur [] Lungs & Thorax: Bilateral breath sounds clear to auscultation [] Extremities: Patient is morbidly obese but there is no appreciable difference in her left knee external exam than her right knee. Her left knee does appear swollen but as stated above not significantly more than her right knee. Possibly palpate a mild to moderate sized joint effusion on the left. She has severe pain to even light touch of her skin on her thigh no posterior knee and leg. There is no warmth or erythema to palpation and the compartments are very soft. She has a 2 x 2 centimeter bruise to her left posterior thigh in her left upper calf. She has strong dorsalis pedis pulse bilaterally. Neurologic: Alert and oriented X 3, normal motor function, normal sensory function, no focal deficits noted. [] Current Patient Data Vital Signs Vital Signs Date Time Temp Pulse Resp B/P (MAP) Pulse Ox O2 Delivery O2 Flow Rate FiO2 05/24/17 23:47 20 97 Room Air EKG EKG [] Radiology/Procedures Radiology/Procedures 3 views right knee Indication: RT KNEE PAIN S/P FALL, PAIN TO BACK OF KNEE, ER PHYSICIAN REQUESTING OVER READ. FINDINGS: There is no fracture or dislocation. Joint spaces are well-maintained. No evidence for joint effusion. 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 IMPRESSION: Negative for fracture or dislocation. Electronically signed by: Farhat Merritt MD (05/24/2017 11:59 PM) [facility] DICTATED AND SIGNED BY: FARHAT MERRITT MD DATE: 05/24/17 8322 INDICATION: Left leg pain and bruising COMPARISON: None. TECHNIQUE: Grayscale, color and doppler ultrasound images were obtained of the left lower extremity venous vasculature. LEFT: No thrombus identified in the common femoral vein, femoral vein, popliteal vein or visualized calf veins. 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 IMPRESSION: 1. No thrombus identified in deep venous system of the left lower extremity. Electronically signed by: Dexter Wells MD (05/25/2017 1:04 AM) [facility] DICTATED AND SIGNED BY: DEXTER WELLS MD DATE: 05/25/17 0103 Course & Med Decision Making Course & Med Decision Making Her knee x-ray and venous ultrasound are negative for acute findings. Even the lightest touch on her skin causes her pain. Her joint stable and she is neurovascularly intact distally. I cannot find any signs or symptoms of infection arterial insufficiency DVT bony trauma septic joint or other acute causes of her knee pain. I'm surprised how well she puts weight on the knee given how she jumps off the table with the lightest touch of anywhere in her knee region. Patient will be discharged with instructions for rice NSAIDs PCP follow-up in 1-2 days and come back to the ER sooner with any worsening symptoms. Dragon Disclaimer Dragon Disclaimer This chart was dictated in whole or in part using Voice Recognition software in a busy, high-work load, and often noisy Emergency Department environment. It may contain unintended and wholly unrecognized errors or omissions. Departure Departure: Impression: Primary Impression: Left knee pain Additional Impression: Effusion, left knee Disposition: 01 HOME, SELF-CARE Condition: GOOD Referrals: DENEEN LESLIE MD (PCP) Patient Instructions: Knee Effusion Additional Instructions: TAKE 400MG OF IBUPROFEN EVERY 6 HOURS AND THE NORCO FOR BREAKTHROUGH PAIN. FOLLOW WITH YOUR PCP IN 1-2 DAYS TO RE-EVALUATE SYMPTOMS. Problem Qualifiers LIZZY TIWARI DO May 25, 2017 00:08
--- NOTE | 2017-05-25 01:08 | RAD ---
INDICATION: Left leg pain and bruising COMPARISON: None. TECHNIQUE: Grayscale, color and doppler ultrasound images were obtained of the left lower extremity venous vasculature. LEFT: No thrombus identified in the common femoral vein, femoral vein, popliteal vein or visualized calf veins. 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 IMPRESSION: 1. No thrombus identified in deep venous system of the left lower extremity. Electronically signed by: Pipo Angela MD (05/25/2017 1:04 AM) [facility]
[2017-05-25] MEDS ORDERED: KETOROLAC 60 MG/2 ML VIAL. IM ONE (01:30)
[2017-05-25] MEDS ORDERED: HYDROmorphone PF 1 MG/ML DISP.SYRIN IM ONE (01:30)
== END 2017-05-25 02:00 | disposition home or self-care (01) ==
LOC: ER 22:35
DX: M25.462 Effusion, left knee (principal); M25.561 Pain in right knee; F17.210 Nicotine dependence, cigarettes, uncomplicated
CPT/HCPCS: 73562; 93971; 96372; 99284; J1170; J1885

== ENCOUNTER 2017-11-10 10:33 | Emergency (ER) | payer OTHER ==
[~2017-11-10] VITALS: Ht 165.1 cm; Wt 158.8 kg
[2017-11-10] MEDS ORDERED: EPINEPHrine 1 MG/ML AMPUL ONE (10:48)
[2017-11-10] MEDS ORDERED: FAMOTIDINE 20 MG/2 ML VIAL IVP ONE (11:00)
[2017-11-10] MEDS ORDERED: methylPREDNISolone SOD SUCC PF 125 MG/2 ML VIAL. IV ONE (11:00)
[2017-11-10] MEDS ORDERED: diphenhydrAMINE 50 MG/ML VIAL IVP ONE (11:00)
[2017-11-10] MEDS ORDERED: IV NORMAL SALINE 1,000ML 1,000 ML IV ONE (11:00)
[2017-11-10 11:02] LABS: BASO % 1 % (0-3); EOS # 0.2 x10^3/uL (0.0-0.7); EOS % 3 % (0-3); HEMATOCRIT 42.4 % (36.0-47.0); LYMPH # 2.3 x10^3/uL (1.0-4.8); LYMPH % 25 % (24-48); MEAN CORPUSCULAR HEMOGLOBIN 29 pg (25-35); MEAN CORPUSCULAR HGB CONC 33 g/dL (31-37); MEAN CORPUSCULAR VOLUME 88 fL (79-100); MONO # 0.6 x10^3/uL (0.0-1.1); MONO % 7 % (0-9); NEUT # 5.9 x10^3uL (1.8-7.7); NEUT % 65 % (31-73); PLATELET COUNT 311 x10^3/uL (140-400); RED BLOOD COUNT 4.81 x10^6/uL (3.50-5.40); RED CELL DISTRIBUTION WIDTH 12.8 % (11.5-14.5); WHITE BLOOD COUNT 9.1 x10^3/uL (4.0-11.0)
[2017-11-10 11:12] LABS: CALCIUM 8.7 mg/dL (8.5-10.1); CREATININE 0.7 mg/dL (0.6-1.0); GFR 92.2; POTASSIUM 4.1 mmol/L (3.5-5.1)
[2017-11-10] MEDS ORDERED: EPINEPHrine 1 MG/ML AMPUL IM ONE (11:15)
--- NOTE | 2017-11-10 11:37 | EKG ---
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
[2017-11-10] MEDS ORDERED: KETOROLAC 30 MG/ML VIAL. IV ONE (11:45)
[2017-11-10 13:22] VITALS: BP 126/70
--- NOTE | 2017-11-10 13:52 | PHYS DOC ---
Past History Past Medical History: No Pertinent History Past Surgical History: Appendectomy, Cholecystectomy, , Hysterectomy, Other Smoking: Cigarettes Alcohol Use: None Drug Use: None Adult General Chief Complaint Chief Complaint: ALLERGIC REACTION HPI HPI Patient is a 42 year old F who presents with rash and sensation that her throat/ tongue is swelling. Tona states that last night she began having itchy red rash on her arms. This morning when she woke up she had a rash on her face and neck as well as a hoarse voice and sensation of swelling in her tongue and throat. She has had a history of to anaphylactic reactions. She has no history of intubation. She feels that she may be allergic to wheat which she did eat last night. She has no other associated symptoms. She has no other exacerbating or alleviating factors at this time. Review of Systems Review of Systems Constitutional: Denies fever or chills [] Eyes: Denies change in visual acuity, redness, or eye pain [] HENT: Denies nasal congestion or sore throat [] Respiratory: Negative except history of present illness Cardiovascular: No additional information not addressed in HPI [] GI: Denies abdominal pain, nausea, vomiting, bloody stools or diarrhea [] : Denies dysuria or hematuria [] Musculoskeletal: Denies back pain or joint pain [] Integument: Negative except history of present illness Neurologic: Denies headache, focal weakness or sensory changes [] Endocrine: Denies polyuria or polydipsia [] All other systems were reviewed and found to be within normal limits, except as documented in this note. Family History Family History No pertinent family medical history reported Current Medications Current Medications Current medications were reviewed Current Medications Medications (Trade) Dose Ordered Sig/Sonu Start Time Stop Time Status Last Admin Dose Admin Diphenhydramine HCl (Benadryl) 50 mg 1X ONCE 11/10/17 11:00 11/10/17 11:04 DC 11/10/17 11:00 50 MG Epinephrine HCl 0.3 mg 1X ONCE 11/10/17 11:15 11/10/17 11:16 DC 11/10/17 11:00 0.3 MG Famotidine (Pepcid Vial) 20 mg 1X ONCE 11/10/17 11:00 11/10/17 11:04 DC 11/10/17 11:00 20 MG Ketorolac Tromethamine (Toradol) 30 mg 1X ONCE 11/10/17 11:45 11/10/17 11:48 DC 11/10/17 11:45 30 MG Methylprednisolone Sodium Succinate (SOLU-Medrol 125MG VIAL) 80 mg 1X ONCE 11/10/17 11:00 11/10/17 11:04 DC 11/10/17 11:00 80 MG Sodium Chloride 1,000 ml @ 1,000 mls/hr 1X ONCE 11/10/17 11:00 11/10/17 11:59 DC 11/10/17 11:00 1,000 MLS/HR Allergies Allergies Allergies Coded Allergies Type Severity Reaction Last Updated Verified buckwheat Allergy Severe sob 11/10/17 Yes Physical Exam Physical Exam Constitutional: Well developed, well nourished, no acute distress, non-toxic appearance. [] HENT: Normocephalic, atraumatic, moderate raised erythematous rash surrounding the mouth, nose, anterior neck and forehead. Hoarse sounding voice. Eyes: EOMI, conjunctiva normal, no discharge. [] Neck: Normal range of motion, no tenderness, supple, no stridor. [] Cardiovascular:Heart rate regular rhythm, no murmur [] Lungs & Thorax: Bilateral breath sounds clear to auscultation [] Abdomen: Bowel sounds normal, soft, no tenderness, no masses, no pulsatile masses. [] Skin: Warm, dry, no erythema, erythematous rash on bilateral upper extremities Back: No tenderness, no CVA tenderness. [] Extremities: No tenderness, no cyanosis, no clubbing, ROM intact, no edema. [] Neurologic: Alert and oriented X 3, normal motor function, normal sensory function, no focal deficits noted. [] Psychologic: Affect normal, judgement normal, mood normal. [] Current Patient Data Vital Signs Vital Signs Date Time Temp Pulse Resp B/P (MAP) Pulse Ox O2 Delivery O2 Flow Rate FiO2 11/10/17 13:22 78 20 126/70 (88) 97 Room Air 11/10/17 10:33 99.0 Lab Results Laboratory Tests Test 11/10/17 10:45 White Blood Count 9.1 x10^3/uL (4.0-11.0) Red Blood Count 4.81 x10^6/uL (3.50-5.40) Hemoglobin 14.0 g/dL (12.0-15.5) Hematocrit 42.4 % (36.0-47.0) Mean Corpuscular Volume 88 fL (79-100) Mean Corpuscular Hemoglobin 29 pg (25-35) Mean Corpuscular Hemoglobin Concent 33 g/dL (31-37) Red Cell Distribution Width 12.8 % (11.5-14.5) Platelet Count 311 x10^3/uL (140-400) Neutrophils (%) (Auto) 65 % (31-73) Lymphocytes (%) (Auto) 25 % (24-48) Monocytes (%) (Auto) 7 % (0-9) Eosinophils (%) (Auto) 3 % (0-3) Basophils (%) (Auto) 1 % (0-3) Neutrophils # (Auto) 5.9 x10^3uL (1.8-7.7) Lymphocytes # (Auto) 2.3 x10^3/uL (1.0-4.8) Monocytes # (Auto) 0.6 x10^3/uL (0.0-1.1) Eosinophils # (Auto) 0.2 x10^3/uL (0.0-0.7) Basophils # (Auto) 0.0 x10^3/uL (0.0-0.2) Sodium Level 141 mmol/L (136-145) Potassium Level 4.1 mmol/L (3.5-5.1) Chloride Level 106 mmol/L (98-107) Carbon Dioxide Level 28 mmol/L (21-32) Anion Gap 7 (6-14) Blood Urea Nitrogen 9 mg/dL (7-20) Creatinine 0.7 mg/dL (0.6-1.0) Estimated GFR (Cockcroft-Gault) 92.2 Glucose Level 93 mg/dL (70-99) Calcium Level 8.7 mg/dL (8.5-10.1) EKG EKG [] Radiology/Procedures Radiology/Procedures [] Course & Med Decision Making Course & Med Decision Making Pertinent Labs and Imaging studies reviewed. (See chart for details) The timing of Tona symptoms is not exactly consistent with anaphylaxis however it could represent a second spike in symptoms from last night to this morning. Given her symptoms of tongue swelling and hoarse voice she was given a dose of epinephrine which did resolve her symptoms of tongue swelling within 5- 10 minutes. She was monitored for approximately 2 hours after her dose of epinephrine without worsening symptoms. Dragon Disclaimer Dragon Disclaimer This electronic medical record was generated, in whole or in part, using a voice recognition dictation system. Departure Departure: Impression: Primary Impression: Allergic reaction Disposition: 01 HOME, SELF-CARE Condition: STABLE Referrals: DENEEN LESLIE MD (PCP) Patient Instructions: Anaphylactic Reaction Additional Instructions: Tona was seen in the emergency department rash and sensation that her throat is closing. She was found to have symptoms concerning for anaphylaxis. She was treated with IV medications including epinephrine. Her symptoms did improve and were stable prior to discharge. She was strongly advised to return to the emergency room if she develops new or worsening symptoms. She is given education about the possibility for rebound symptoms within 12-24 hours. She was also advised follow-up with her primary care doctor in the next 2-3 days for further management. Scripts Prednisone (PREDNISONE) 10 Mg Tablet 40 MG PO DAILY for 5 Days, #20 TAB Prov: KATIE HYMAN MD 11/10/17 Triamcinolone Acetonide (TRIAMCINOLONE ACETONIDE) 15 Gm Cream..g. 1 ESPERANZA TP BID, #15 GM 1 Refill Prov: KATIE HYMAN MD 11/10/17 Hydroxyzine Hcl (HYDROXYZINE HCL) 25 Mg Tablet 1 TAB PO TID Y for ITCHING for 7 Days, #21 TAB Prov: KATIE HYMAN MD 11/10/17 Problem Qualifiers Primary Impression: Allergic reaction Encounter type: initial encounter Qualified Codes: T78.40XA - Allergy, unspecified, initial encounter KATIE HYMAN MD Nov 10, 2017 13:52
[2017-11-10] MEDS ORDERED: TRIA15CR50 TP (14:09)
[2017-11-10] MEDS ORDERED: HYDR25TA PO (14:09)
[2017-11-10] MEDS ORDERED: PRED-220 PO (14:17)
== END 2017-11-10 14:20 | disposition home or self-care (01) ==
LOC: ER 10:33
DX: T78.40XA Allergy, unspecified, initial encounter (principal); F17.210 Nicotine dependence, cigarettes, uncomplicated; Z91.018 Allergy to other foods; X58.XXXA Exposure to other specified factors, initial encounter
CPT/HCPCS: 36415; 80048; 85025; 93005; 96361; 96372; 96374; 96375; 99285; J0171; J1200; J1885; J2930; S0028; J7030

== ENCOUNTER 2017-11-21 20:36 | Emergency (ER) | payer OTHER ==
[~2017-11-21] VITALS: Ht 165.1 cm; Wt 165.7 kg
[~2017-11-21 20:36] MED LIST changes: +HYDR25TA PO; +PRED-220 PO; +TRIA15CR50 TP
--- NOTE | 2017-11-21 21:52 | EKG ---
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
[2017-11-21] MEDS ORDERED: diphenhydrAMINE 50 MG/ML VIAL IVP ONE (23:15)
[2017-11-21] MEDS ORDERED: IOHEXOL 300 MG/ML 75 ML VIAL. IV ONE (23:15)
[2017-11-21] MEDS ORDERED: CONTRAST GIVEN MC PRN (23:15)
[2017-11-21] MEDS ORDERED: PROCHLORPERAZINE 10 MG/2 ML VIAL. IV ONE (23:15)
[2017-11-21] MEDS ORDERED: IV NORMAL SALINE 1,000ML 1,000 ML IV ONE (23:15)
--- NOTE | 2017-11-22 00:07 | PHYS DOC ---
Past History Past Medical History: Anxiety, Depression Past Surgical History: Appendectomy, Cholecystectomy, Hysterectomy Smoking: Cigarettes Alcohol Use: None Drug Use: None Adult General Chief Complaint Chief Complaint: MULTIPLE COMPLAINTS HPI HPI Patient is a 42-year-old female presents with multiple complaints including headache associated with neck pain as well as diffuse chest pain. Patient denies any trauma, fevers, chills, rashes. Patient states that she suffers from anxiety and depression and she is been more stressed recently. Patient does not describe any vision changes, denies any vomiting or back pain or abdominal pain. Patient does not describe any focal weakness or numbness. Patient denies any increased swelling or pain in her lower extremities. No pain with inspiration Review of Systems Review of Systems Constitutional: Denies fever or chills [] Eyes: Denies change in visual acuity, redness, or eye pain [] HENT: Denies nasal congestion or sore throat. Yes to neck pain Respiratory: Denies cough or shortness of breath [] Cardiovascular: No additional information not addressed in HPI [] GI: Denies abdominal pain, nausea, vomiting, bloody stools or diarrhea [] : Denies dysuria or hematuria [] Musculoskeletal: Denies back pain or joint pain [] Integument: Denies rash or skin lesions [] Neurologic: Denies focal weakness or sensory changes. Yes to headache Endocrine: Denies polyuria or polydipsia [] All other systems were reviewed and found to be within normal limits, except as documented in this note. Current Medications Current Medications Current Medications Medications (Trade) Dose Ordered Sig/Sonu Start Time Stop Time Status Last Admin Dose Admin Diphenhydramine HCl (Benadryl) 25 mg 1X ONCE 11/21/17 23:15 11/21/17 23:16 DC 11/21/17 23:42 25 MG Info (Do NOT chart on this entry -- for MONITORING) 1 each PRN DAILY PRN 11/21/17 23:15 11/23/17 23:14 Iohexol (Omnipaque 300 Mg/ml) 75 ml 1X ONCE 11/21/17 23:15 11/21/17 23:16 DC 11/21/17 23:48 75 ML Prochlorperazine Edisylate (Compazine) 10 mg 1X ONCE 11/21/17 23:15 11/21/17 23:16 DC 11/21/17 23:42 10 MG Sodium Chloride 1,000 ml @ 1,000 mls/hr 1X ONCE 11/21/17 23:15 11/22/17 00:14 Allergies Allergies Allergies Coded Allergies Type Severity Reaction Last Updated Verified aleidaeat Allergy Severe sob 11/10/17 Yes Physical Exam Physical Exam Constitutional: Well developed, well nourished, mild distress, non-toxic appearance. Obese HENT: Normocephalic, atraumatic, bilateral external ears normal, oropharynx moist, no oral exudates, nose normal. No signs of basilar skull fracture Eyes: PERRLA, EOMI, conjunctiva normal, no discharge. [] Neck: Normal range of motion, mild tenderness paraspinal muscles, no midline tenderness, no step-offs, supple, no stridor. No LAD, no meningeal signs Cardiovascular:Heart rate regular rhythm, no murmur, equal pulses, normal perfusion Lungs & Thorax: Bilateral breath sounds clear to auscultation, no tachypnea, good air movement Abdomen: Bowel sounds normal, soft, no tenderness, no masses, no pulsatile masses. [] Skin: Warm, dry, no erythema, no rash. [] Back: Normal range of motion Extremities: No tenderness, no DVT, ROM intact, no edema. [] Neurologic: Alert and oriented X 3, normal motor function, normal speech, ambulates in the ED with normal gait and without assistance, no focal deficits noted. [] Psychologic: Affect normal, judgement normal, mood mild he anxious. [] Current Patient Data Vital Signs Vital Signs Date Time Temp Pulse Resp B/P (MAP) Pulse Ox O2 Delivery O2 Flow Rate FiO2 11/21/17 20:40 97.8 107 20 96 Room Air EKG EKG 2140 87 sinus rhythm, no STEMI[] Radiology/Procedures Radiology/Procedures [] Course & Med Decision Making Course & Med Decision Making Pertinent Labs and Imaging studies reviewed. (See chart for details) 0018 patient states her symptoms are compared results and wishes to be discharged home. I have explained to the patient that her labs and CT scan results have not resulted yet and giving her presentation I recommend that she stay until we get the information back. Patient wishes to go home now, I explained to the patient she will have to leave AMA, and patient states she will do so. Patient has medical decision capacity and is in no distress while making this decision. I have explained the risk and benefits of leaving AMA including but not limited to permanent disability, , cardiac infarction, head bleed, etc. patient understands she is free to change her mind or return to the ED for further monitoring or testing. Patient states we have her phone number and she can recall if any abnormalities are detected. I explained that other things may need to be done but patient states she does feel at baseline and was to go home now [] Dragon Disclaimer Dragon Disclaimer This electronic medical record was generated, in whole or in part, using a voice recognition dictation system. Departure Departure: Impression: Primary Impression: Headache Additional Impressions: Chest pain Left against medical advice Disposition: 07 AGAINST MEDICAL ADVICE Condition: STABLE Referrals: DENEEN LESLIE MD (PCP) Please follow-up with your doctor in 1 day for recheck and reevaluation. If she change her mind you may return to the emergency department for further monitoring and evaluation Patient Instructions: Chest Pain (Nonspecific), Discharge Against Medical Advice, General Headache Without Cause Problem Qualifiers Ronn NIETO MD Nov 22, 2017 00:07
[2017-11-22 00:17] VITALS: BP 156/79
--- NOTE | 2017-11-22 00:21 | RAD ---
INDICATION: [id number] Omni 300 70cc: Severe headache, dizziness, nausea, vomiting, altered vision x 3 days. No priors. COMPARISON: None. TECHNIQUE: Axial CT images obtained through the head without and with intravenous contrast. One or more of the following individualized dose reduction techniques were utilized for this examination: 1. Automated exposure control; 2. Adjustment of the mA and/or kV according to patient size; 3. Use of iterative reconstruction technique. FINDINGS: No intracranial hemorrhage. No midline shift. Basal cisterns patent. Ventricles and sulci are unremarkable. No acute osseous abnormality. Nasal septal deviation to the right. IMPRESSION: 1. No acute intracranial hemorrhage. 2. No definite enhancing mass. Electronically signed by: Pipo Angela MD (11/22/2017 12:17 AM) [facility]
[2017-11-22 00:34] LABS: HEMATOCRIT 41.8 % (36.0-47.0); HEMOGLOBIN 13.4 g/dL (12.0-15.5); MEAN CORPUSCULAR HEMOGLOBIN 28 pg (25-35); MEAN CORPUSCULAR HGB CONC 32 g/dL (31-37); MEAN CORPUSCULAR VOLUME 88 fL (79-100); PLATELET COUNT 338 x10^3/uL (140-400); RED BLOOD COUNT 4.75 x10^6/uL (3.50-5.40); RED CELL DISTRIBUTION WIDTH 12.6 % (11.5-14.5)
[2017-11-22 00:37] LABS: CALCIUM 9.4 mg/dL (8.5-10.1); CREATININE 0.8 mg/dL (0.6-1.0); POTASSIUM 3.6 mmol/L (3.5-5.1)
[2017-11-22 00:44] LABS: % BANDS 2 % (0-9); % EOS 1 % (0-5); % LYMPHS 34 % (24-48); % MONOS 4 % (0-10); % SEGS 59 % (35-66); PLT ESTIMATE ADEQUATE (ADEQUATE)
== END 2017-11-22 00:26 | disposition left against medical advice (07) ==
LOC: ER 20:36
DX: R51 Headache (principal); M54.2 Cervicalgia; R07.89 Other chest pain; F41.9 Anxiety disorder, unspecified; F32.9 Major depressive disorder, single episode, unspecified; F17.210 Nicotine dependence, cigarettes, uncomplicated; Z91.018 Allergy to other foods
CPT/HCPCS: 36415; 70470; 80048; 84484; 85007; 85025; 93005; 96374; 96375; 99285; J0780; J1200; Q9967

== ENCOUNTER 2018-01-17 13:44 | Emergency (ER) | payer OTHER ==
[~2018-01-17] VITALS: Ht 165.1 cm; Wt 171.0 kg
--- NOTE | 2018-01-17 14:17 | EKG ---
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
[2018-01-17 14:46] LABS: BASO # 0.1 x10^3/uL (0.0-0.2); BASO % 1 % (0-3); EOS # 0.2 x10^3/uL (0.0-0.7); EOS % 3 % (0-3); HEMATOCRIT 38.8 % (36.0-47.0); LYMPH # 2.7 x10^3/uL (1.0-4.8); LYMPH % 35 % (24-48); MEAN CORPUSCULAR HEMOGLOBIN 29 pg (25-35); MEAN CORPUSCULAR HGB CONC 34 g/dL (31-37); MEAN CORPUSCULAR VOLUME 87 fL (79-100); MONO # 0.6 x10^3/uL (0.0-1.1); MONO % 8 % (0-9); NEUT # 4.3 x10^3uL (1.8-7.7); NEUT % 54 % (31-73); PLATELET COUNT 318 x10^3/uL (140-400); RED BLOOD COUNT 4.47 x10^6/uL (3.50-5.40); RED CELL DISTRIBUTION WIDTH 13.3 % (11.5-14.5); WHITE BLOOD COUNT 7.9 x10^3/uL (4.0-11.0)
--- NOTE | 2018-01-17 14:47 | RAD ---
Chest radiograph 01/17/2018 3:53 PM Indication: Chest pain Comparison: Chest radiograph 03/08/2017 Technique: Single portable upright frontal view of the chest is provided. Findings: Cardiomediastinal silhouette is within normal limits. No pleural effusions, pulmonary vascular congestion or pneumothorax. Minimal linear densities in the left midlung may represent subsegmental atelectasis. Osseous structures are normal. Impression: Minimal linear densities in the left midlung may represent subsegmental atelectasis. Otherwise, lungs are clear.
--- NOTE | 2018-01-17 15:02 | PHYS DOC ---
Past History Past Medical History: Anxiety, Depression Past Surgical History: Appendectomy, Cholecystectomy, Hysterectomy Smoking: Cigarettes Alcohol Use: None Drug Use: None Adult General Chief Complaint Chief Complaint: CHEST PAIN HPI HPI 42-year-old female patient with history of anxiety and depression and morbid obesity complaining of intermittent episodes of left-sided chest pain as a pressure pain with radiation to left shoulder and neck and her back for the last 3 days. Patient states she gets episodes of pain 3 to 4 times a day and usually lasts about 1-3 minutes but one time her chest pain last for 30 minutes. Complaining of shortness of breath, nausea, palpitation, dizziness, bilateral hand numbness during episodes of chest pain. Patient states her pain is 9/10 and denies chest pain at arrival to ER. She was seen at [facility] emergency room 2 days ago with unremarkable test and by her primary care physician yesterday and has an arrangement for cardiology appointment and scan of her heart. Patient is had prescription of hydrocodone from [facility] but states her pain is not getting better. Patient denies history of chest pain , diabetes, hypertension, hypercholesterolemia, smoking, coronary artery disease. Patient had family history of coronary artery disease. Review of Systems Review of Systems Constitutional: Denies fever or chills [] Eyes: Denies change in visual acuity, redness, or eye pain [] HENT: Denies nasal congestion or sore throat [] Respiratory: Denies cough , reports shortness of breath [] Cardiovascular: No additional information not addressed in HPI [] GI: Denies abdominal pain, nausea, vomiting, bloody stools or diarrhea [] : Denies dysuria or hematuria [] Musculoskeletal: Denies back pain or joint pain [] Integument: Denies rash or skin lesions [] Neurologic: Denies headache, focal weakness, reports paresthesia and dizziness[] Endocrine: Denies polyuria or polydipsia [] All other systems were reviewed and found to be within normal limits, except as documented in this note. Family History Family History Positive for coronary artery disease Allergies Allergies Allergies Coded Allergies Type Severity Reaction Last Updated Verified buckwheat Allergy Severe sob 11/10/17 Yes Physical Exam Physical Exam Constitutional: Well well nourished, mild distress, non-toxic appearance, anxious, morbidly obese. [] HENT: Normocephalic, atraumatic, bilateral external ears normal, oropharynx moist, no oral exudates, nose normal. [] Eyes: PERRLA, EOMI, conjunctiva normal, no discharge. [] Neck: Normal range of motion, no tenderness, supple, no stridor. [] Cardiovascular:Heart rate regular rhythm, no murmur [] Lungs & Thorax: Bilateral breath sounds clear to auscultation [] Abdomen: Bowel sounds normal, soft, no tenderness, no masses, no pulsatile masses. [] Skin: Warm, dry, no erythema, no rash. [] Back: No tenderness, no CVA tenderness. [] Extremities: No tenderness, no cyanosis, no clubbing, ROM intact, no edema. [] Neurologic: Alert and oriented X 3, normal motor function, normal sensory function, no focal deficits noted. [] Psychologic: anxious, judgement normal, mood normal. [] Current Patient Data Lab Results Laboratory Tests Test 01/17/18 14:33 White Blood Count 7.9 x10^3/uL (4.0-11.0) Red Blood Count 4.47 x10^6/uL (3.50-5.40) Hemoglobin 13.0 g/dL (12.0-15.5) Hematocrit 38.8 % (36.0-47.0) Mean Corpuscular Volume 87 fL (79-100) Mean Corpuscular Hemoglobin 29 pg (25-35) Mean Corpuscular Hemoglobin Concent 34 g/dL (31-37) Red Cell Distribution Width 13.3 % (11.5-14.5) Platelet Count 318 x10^3/uL (140-400) Neutrophils (%) (Auto) 54 % (31-73) Lymphocytes (%) (Auto) 35 % (24-48) Monocytes (%) (Auto) 8 % (0-9) Eosinophils (%) (Auto) 3 % (0-3) Basophils (%) (Auto) 1 % (0-3) Neutrophils # (Auto) 4.3 x10^3uL (1.8-7.7) Lymphocytes # (Auto) 2.7 x10^3/uL (1.0-4.8) Monocytes # (Auto) 0.6 x10^3/uL (0.0-1.1) Eosinophils # (Auto) 0.2 x10^3/uL (0.0-0.7) Basophils # (Auto) 0.1 x10^3/uL (0.0-0.2) EKG EKG EKG interpreted by me. EKG at 1350 showed sinus rhythm at rate of 98, no acute distress and T wave abnormality[] Radiology/Procedures Radiology/Procedures [] [address] [address] IMAGING REPORT Signed PATIENT: JEANNINE HORTON ACCOUNT: [id number] : 1975 LOCATION: ER AGE: 42 SEX: F EXAM STATUS: REG ER ORD. PHYSICIAN: SANJEEV TORREZ MD REASON: chest pain PROCEDURE: PORTABLE CHEST 1V Chest radiograph 01/17/2018 3:53 PM Indication: Chest pain Comparison: Chest radiograph 03/08/2017 Technique: Single portable upright frontal view of the chest is provided. Findings: Cardiomediastinal silhouette is within normal limits. No pleural effusions, pulmonary vascular congestion or pneumothorax. Minimal linear densities in the left midlung may represent subsegmental atelectasis. Osseous structures are normal. Impression: Minimal linear densities in the left midlung may represent subsegmental atelectasis. Otherwise, lungs are clear. DICTATED AND SIGNED BY: MICHAEL SHEARER MD DATE: 01/17/18 1442 CC: SANJEEV TORREZ MD; DENEEN LESLIE MD ~ Course & Med Decision Making Course & Med Decision Making Pertinent Labs and Imaging studies reviewed. (See chart for details) []Evaluation of patient in ER showed 42-year-old female patient with history of depression and anxiety and complaining of chest pain for 3 days and third visit for this problem. Patient had unremarkable physical exam and labs including d- dimer. Patient treated with Norflex in ER. Patient was unhappy with normal test result and was not coming is that she does not have acute medical problem at this time. Patient already had an appointment with fitter mechanic was made by her primary care physician and instructed to follow up with her appointment. discharge: I've spoken with the patient and/or caregivers. I've explained the patient's condition, diagnosis and treatment plan based on information available to me at this time. I've answered the patient's and/or caregivers questions and addressed any concerns. The patient and/or caregivers have a good understanding the patient's diagnosis, condition and treatment plan as can be expected at this point. Vital signs have been stabilized. The patient's condition is stable for discharge from the emergency department. The patient will pursue further outpatient evaluation with her primary care provider or other designated consulting physician as outlined in the discharge instructions. Patient and/or caregivers are agreeable to this plan of care and follow-up instructions have been explained in detail. The patient and/or caregivers have received these instructions in written format and expressed understanding of these discharge instructions. The patient and her caregivers are aware that if any significant change in condition or worsening of symptoms should prompt him to immediately return to this of the closest emergency department. If an emergent department is not readily available I would encourage him to call 911. Dragon Disclaimer Dragon Disclaimer This electronic medical record was generated, in whole or in part, using a voice recognition dictation system. Departure Departure: Impression: Primary Impression: Musculoskeletal chest pain Additional Impressions: Anxiety Morbid obesity Disposition: 01 HOME, SELF-CARE (At 1538) Condition: STABLE Referrals: DENEEN LESLIE MD (PCP) Patient Instructions: Musculoskeletal Pain Additional Instructions: Follow-up with your primary care physician in 3-5 days Return to ER if not getting better Scripts Cyclobenzaprine Hcl (CYCLOBENZAPRINE HCL) 10 Mg Tablet 1 TAB PO TID, #30 TAB Prov: SANJEEV TORREZ MD 01/17/18 Problem Qualifiers SANJEEV TORREZ MD Jan 17, 2018 15:02
[2018-01-17 15:09] LABS: ALBUMIN 3.5 g/dL (3.4-5.0); ALBUMIN/GLOBULIN RATIO 1.1 (1.0-1.7); CALCIUM 8.9 mg/dL (8.5-10.1); CREATININE 0.6 mg/dL (0.6-1.0); GFR 110.2; POTASSIUM 3.7 mmol/L (3.5-5.1); TOTAL BILIRUBIN 0.2 mg/dL (0.2-1.0); TOTAL PROTEIN 6.7 g/dL (6.4-8.2)
[2018-01-17] MEDS ORDERED: ORPHENADRINE CITRATE 60 MG/2 ML VIAL. IV ONE (15:30)
[2018-01-17] MEDS ORDERED: CYCL-331 PO (15:39)
[2018-01-17 15:50] VITALS: BP 148/92
== END 2018-01-17 15:55 | disposition home or self-care (01) ==
LOC: ER 13:44
DX: R07.89 Other chest pain (principal); F41.9 Anxiety disorder, unspecified; F32.9 Major depressive disorder, single episode, unspecified; E66.01 Morbid (severe) obesity due to excess calories; F17.210 Nicotine dependence, cigarettes, uncomplicated; Z68.44 Body mass index [BMI] 60.0-69.9, adult; Z91.048 Other nonmedicinal substance allergy status
CPT/HCPCS: 36415; 71045; 80053; 82553; 83690; 83880; 84484; 85025; 85379; 85610; 93005; 96374; 99285; J2360

== ENCOUNTER 2018-09-21 07:37 | Emergency (ER) | payer OTHER ==
[~2018-09-21] VITALS: Ht 165.1 cm; Wt 179.2 kg
[~2018-09-21 07:37] MED LIST changes: +CYCL-331 PO
[2018-09-21] MEDS ORDERED: methylPREDNISolone SOD SUCC PF 125 MG/2 ML VIAL. IV ONE (08:00)
[2018-09-21] MEDS ORDERED: diphenhydrAMINE 50 MG/ML VIAL IVP ONE (08:00)
--- NOTE | 2018-09-21 08:16 | PHYS DOC ---
Past History Past Medical History: Anxiety, Depression Past Surgical History: Appendectomy, Cholecystectomy, , Hysterectomy, Other Smoking: Cigarettes Alcohol Use: None Drug Use: None Adult General Chief Complaint Chief Complaint: allergic reaction HPI HPI 42-year-old female presents with concern for allergic reaction. She was prescribed a new injectable weight loss medication. She took her first dose ever this morning. Within 10 minutes, the patient states she felt like her lip was swelling, her throat was swelling and had a lump and it, and she thought it was more difficult to breathe. She was able to drive herself to the emergency room. She called her PCP who advised she come emergency room. 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 She was feeling well prior to this episode. She does carry an EpiPen for her buckwheat allergy, but did not use it for this reaction. Review of Systems Review of Systems Constitutional: Denies fever or chills [] Eyes: Denies change in visual acuity, redness, or eye pain [] HENT: "Swollen throat"[] Respiratory: shortness of breath [] Cardiovascular: No additional information not addressed in HPI [] GI: Denies abdominal pain, nausea, vomiting, bloody stools or diarrhea [] : Denies dysuria or hematuria [] Musculoskeletal: Denies back pain or joint pain [] Integument: Denies rash or skin lesions [] Neurologic: Denies headache, focal weakness or sensory changes [] Endocrine: Denies polyuria or polydipsia [] All other systems were reviewed and found to be within normal limits, except as documented in this note. Allergies Allergies Allergies Coded Allergies Type Severity Reaction Last Updated Verified buckwheat Allergy Severe sob 11/10/17 Yes Physical Exam Physical Exam Constitutional: Well developed, morbidly obese, well nourished, no acute distress, non-toxic appearance. [] HENT: Normocephalic, atraumatic, bilateral external ears normal, oropharynx moist, no oral exudates, nose normal. Patient is a Mallampati class 3.[] Eyes: PERRLA, EOMI, conjunctiva normal, no discharge. [] Neck: Normal range of motion, no tenderness, supple, no stridor. [] Cardiovascular:Heart rate tachycardic 114, no murmur [] Lungs & Thorax: Bilateral breath sounds clear to auscultation without wheezing[ ] Abdomen: Bowel sounds normal, soft, no tenderness, no masses, no pulsatile masses. [] Skin: Warm, dry, no erythema, no rash. [] Back: No tenderness, no CVA tenderness. [] Extremities: No tenderness, no cyanosis, no clubbing, ROM intact, no edema. [] Neurologic: Alert and oriented X 3, normal motor function, normal sensory function, no focal deficits noted. [] Psychologic: Affect anxious, judgement normal, mood normal. [] EKG EKG [] Radiology/Procedures Radiology/Procedures [] Impressions: EXAM: CHEST 1 VIEW History: Shortness of breath COMPARISON: 01/17/2018 TECHNIQUE: Single portable radiograph of the chest FINDINGS: Low lung volumes and technique accentuates heart size and pulmonary vascularity. Mild prominent appearing bilateral interstitial lung markings. Mild bibasilar lung airspace opacities. IMPRESSION: 1. Mild congestive changes. 2. Mild bibasilar lung airspace opacities likely atelectasis or infiltrates. Electronically signed by: Perez Foley MD (09/21/2018 9:07 AM) [facility] DICTATED AND SIGNED BY: PEREZ FOLEY MD DATE: 09/21/18902 CC: DENNIS LENTZ DO; RAN HINKLE MD Course & Med Decision Making Course & Med Decision Making Pertinent Labs and Imaging studies reviewed. (See chart for details) On initial evaluation the patient is tachycardic. She is concerned about lip swelling however I do not see any obvious swelling of the lips or tongue or mouth. She is a Mallampati class III. Her oxygen saturation on room air is 100% . She is very anxious, but I do not see signs of serious allergic reaction. Patient is also told me this is the very first time she has taken this medicine or anything in its class. I will give her 50 mg of Benadryl IV as well as 125 of Solu-Medrol. The patient's labs are unremarkable. Her chest x-ray shows bibasal atelectasis or infiltrates. The rest of her workup does not show evidence of pneumonia, so I will not treat her for this. Patient continues to have throat discomfort and soreness. I evaluated her ears and tympanic membranes are normal bilaterally. I did a rapid strep and a rapid flu as the patient is complaining of generalized body aches. They're both negative. The patient's heart rate at rest has improved and her EKG is unremarkable. At no time has she been hypotensive or had a low oxygen saturation. She has been in the emergency room for 4 hours with no worsening of her symptoms. She is stable for discharge at this time. She can use Benadryl as needed at home. [] Dragon Disclaimer Dragon Disclaimer This electronic medical record was generated, in whole or in part, using a voice recognition dictation system. Departure Departure: Referrals: RAN HINKLE MD (PCP) DENNIS LENTZ DO Sep 21, 2018 08:16
[2018-09-21] MEDS: diphenhydrAMINE 50 MG/ML VIAL IM ONE (08:25)
[2018-09-21] MEDS: methylPREDNISolone SOD SUCC PF 125 MG/2 ML VIAL. IM ONE (08:26)
[2018-09-21 08:56] LABS: BASO # 0.1 x10^3/uL (0.0-0.2); BASO % 1 % (0-3); EOS # 0.2 x10^3/uL (0.0-0.7); EOS % 2 % (0-3); HEMATOCRIT 41.7 % (36.0-47.0); HEMOGLOBIN 13.6 g/dL (12.0-15.5); LYMPH # 2.3 x10^3/uL (1.0-4.8); LYMPH % 25 % (24-48); MEAN CORPUSCULAR HEMOGLOBIN 28 pg (25-35); MEAN CORPUSCULAR HGB CONC 33 g/dL (31-37); MEAN CORPUSCULAR VOLUME 87 fL (79-100); MONO # 0.8 x10^3/uL (0.0-1.1); MONO % 9 % (0-9); NEUT # 5.9 x10^3uL (1.8-7.7); NEUT % 64 % (31-73); PLATELET COUNT 398 x10^3/uL (140-400); RED BLOOD COUNT 4.78 x10^6/uL (3.50-5.40); RED CELL DISTRIBUTION WIDTH 13.4 % (11.5-14.5); WHITE BLOOD COUNT 9.3 x10^3/uL (4.0-11.0)
--- NOTE | 2018-09-21 09:10 | RAD ---
EXAM: CHEST 1 VIEW History: Shortness of breath COMPARISON: 01/17/2018 TECHNIQUE: Single portable radiograph of the chest FINDINGS: Low lung volumes and technique accentuates heart size and pulmonary vascularity. Mild prominent appearing bilateral interstitial lung markings. Mild bibasilar lung airspace opacities. IMPRESSION: 1. Mild congestive changes. 2. Mild bibasilar lung airspace opacities likely atelectasis or infiltrates. Electronically signed by: Perez Foley MD (09/21/2018 9:07 AM) [place] [id number]
[2018-09-21 09:11] LABS: ALBUMIN 3.6 g/dL (3.4-5.0); CALCIUM 9.1 mg/dL (8.5-10.1); CREATININE 0.6 mg/dL (0.6-1.0); GFR 110.2; POTASSIUM 4.3 mmol/L (3.5-5.1); TOTAL BILIRUBIN 0.2 mg/dL (0.2-1.0); TOTAL PROTEIN 7.2 g/dL (6.4-8.2)
[2018-09-21 09:41] LABS: % BANDS 0 % (0-9); % BASOS 1 % (0-3); % EOS 3 % (0-5); % LYMPHS 26 % (24-48); % MONOS 10 % (0-10); % SEGS 60 % (35-66); PLT ESTIMATE ADEQUATE (ADEQUATE)
[2018-09-21 10:59] LABS: INFLUENZA A PATIENT NEGATIVE (NEGATIVE); INFLUENZA B PATIENT NEGATIVE (NEGATIVE)
[2018-09-21 11:38] VITALS: BP 150/91
--- NOTE | 2018-09-21 13:31 | EKG ---
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
== END 2018-09-21 12:00 | disposition home or self-care (01) ==
LOC: ER 07:37
DX: M79.10 Myalgia, unspecified site (principal); J02.9 Acute pharyngitis, unspecified; K13.0 Diseases of lips; R06.02 Shortness of breath; E66.01 Morbid (severe) obesity due to excess calories; F41.9 Anxiety disorder, unspecified; F32.9 Major depressive disorder, single episode, unspecified; F17.210 Nicotine dependence, cigarettes, uncomplicated; Z68.44 Body mass index [BMI] 60.0-69.9, adult; Z91.018 Allergy to other foods
CPT/HCPCS: 36415; 71045; 80053; 84484; 85007; 85025; 87070; 87804; 87880; 93005; 96372; 99285; J1200; J2930

== ENCOUNTER 2018-12-22 09:32 | Emergency (ER) | payer OTHER ==
[~2018-12-22] VITALS: Ht 165.1 cm; Wt 173.7 kg
[~2018-12-22 09:32] MED LIST changes: +HYDR-1179 PO; +HYDR-3165 PO; -HYDR-79 PO; -HYDR-971 PO
[2018-12-22] MEDS ORDERED: ORPHENADRINE CITRATE 60 MG/2 ML VIAL. IM ONE (10:20)
[2018-12-22] MEDS ORDERED: KETOROLAC 60 MG/2 ML VIAL. IM ONE (10:20)
--- NOTE | 2018-12-22 10:45 | RAD ---
Examination: CT lumbar spine without contrast HISTORY: History of fall, pain in the back, muscle spasm COMPARISON: None available TECHNIQUE: Axial CT images of the lumbar spine were performed without contrast. Coronal and sagittal reformats are performed. Exposure: One or more of the following individualized dose reduction techniques were utilized for this examination: 1. Automated exposure control 2. Adjustment of the mA and/or kV according to patient size 3. Use of iterative reconstruction technique FINDINGS: The lumbar vertebral body heights are maintained. Moderate intervertebral disc height loss identified in the lumbar spine particularly at L4-L5, L5-S1 vertebral likely degeneration. The bilateral facets are well aligned. Obvious fracture line is not visualized. Examination limited due to patient body habitus. IMPRESSION: 1. No obvious acute fracture identified. Examination limited due to patient body habitus. 2. Moderate degenerative changes lower lumbar spine. Electronically signed by: Perez Foley MD (12/22/2018 10:40 AM) [id number]
[2018-12-22] MEDS ORDERED: NAPR-683 PO (10:56)
[2018-12-22] MEDS ORDERED: HYDR-3165 PO (10:56)
[2018-12-22] MEDS ORDERED: CYCL-331 PO (10:56)
--- NOTE | 2018-12-22 10:56 | PHYS DOC ---
Past History Past Medical History: Bipolar, Depression, Hypertension Past Surgical History: Cholecystectomy, , Hysterectomy Smoking: Cigarettes Alcohol Use: None Drug Use: None Adult General Chief Complaint Chief Complaint: BACK PAIN OR INJURY HPI HPI Patient is a 43 year old female who presents with low back pain and injury. Patient states she slipped on ice yesterday and landed on her left side while walking at her driveway without head injury or loss of consciousness. Patient complaining of gradual increase of pain in her lower back and numbness of left lower extremity. Patient rated her pain 9/10 and denies , urinary symptoms, fever and chills, focal weakness. Review of Systems Review of Systems Constitutional: Denies fever or chills [] Eyes: Denies change in visual acuity, redness, or eye pain [] HENT: Denies nasal congestion or sore throat [] Respiratory: Denies cough or shortness of breath [] Cardiovascular: No additional information not addressed in HPI [] GI: Denies abdominal pain, nausea, vomiting, bloody stools or diarrhea [] : Denies dysuria or hematuria [] Musculoskeletal: Reports back pain Integument: Denies rash or skin lesions [] Neurologic: Denies headache, focal weakness or sensory changes [] Endocrine: Denies polyuria or polydipsia [] All other systems were reviewed and found to be within normal limits, except as documented in this note. Current Medications Current Medications Current Medications Medications (Trade) Dose Ordered Sig/Sonu Start Time Stop Time Status Last Admin Dose Admin Ketorolac Tromethamine (Toradol Im) 60 mg 1X ONCE 12/22/18 10:20 12/22/18 10:21 DC 12/22/18 10:00 60 MG Orphenadrine Citrate (Norflex) 60 mg 1X ONCE 12/22/18 10:20 12/22/18 10:21 DC 12/22/18 10:00 60 MG Allergies Allergies Allergies Coded Allergies Type Severity Reaction Last Updated Verified buckwheat Allergy Severe sob 11/10/17 Yes Physical Exam Physical Exam Constitutional: Well developed, well nourished, mild acute distress, non-toxic appearance, morbidly obese. [] HENT: Normocephalic, atraumatic Eyes: PERRLA, EOMI, conjunctiva normal, no discharge. [] Neck: Normal range of motion, no tenderness, supple, no stridor. [] Cardiovascular:Heart rate regular rhythm, no murmur [] Lungs & Thorax: Bilateral breath sounds clear to auscultation [] Abdomen: Bowel sounds normal, soft, no tenderness, no masses, no pulsatile masses. [] Skin: Warm, dry, no erythema, no rash. [] Back: No midline tenderness, left paraspinal tenderness, no CVA tenderness. [] Extremities: No tenderness, no cyanosis, no clubbing, ROM intact, no edema. [] Neurologic: Alert and oriented X 3, normal motor function, normal sensory function, no paresthesias in left lower extremity, no focal deficits noted. [] Psychologic: Affect anxious, judgement normal, mood normal. [] Current Patient Data Vital Signs Vital Signs Date Time Temp Pulse Resp B/P (MAP) Pulse Ox O2 Delivery O2 Flow Rate FiO2 12/22/18 09:38 98.3 98 20 96 Room Air EKG EKG [] Radiology/Procedures Radiology/[place] [address] IMAGING REPORT Signed PATIENT: JEANNINE HORTON ACCOUNT: [id number] : 1975 LOCATION: ER AGE: 43 SEX: F EXAM STATUS: REG ER ORD. PHYSICIAN: SANJEEV TORREZ MD REASON: fall PROCEDURE: CT LUMBAR SPINE WO CONTRAST Examination: CT lumbar spine without contrast HISTORY: History of fall, pain in the back, muscle spasm COMPARISON: None available TECHNIQUE: Axial CT images of the lumbar spine were performed without contrast. Coronal and sagittal reformats are performed. Exposure: One or more of the following individualized dose reduction techniques were utilized for this examination: 1. Automated exposure control 2. Adjustment of the mA and/or kV according to patient size 3. Use of iterative reconstruction technique FINDINGS: The lumbar vertebral body heights are maintained. Moderate intervertebral disc height loss identified in the lumbar spine particularly at L4-L5, L5-S1 vertebral likely degeneration. The bilateral facets are well aligned. Obvious fracture line is not visualized. Examination limited due to patient body habitus. IMPRESSION: 1. No obvious acute fracture identified. Examination limited due to patient body habitus. 2. Moderate degenerative changes lower lumbar spine. Electronically signed by: Perez Whitley MD (12/22/2018 10:40 AM) [id number] DICTATED AND SIGNED BY: PEREZ WHITLEY MD DATE: 12/22/18 1033 CC: RAN HINKLE MD; SANJEEV TORREZ MD ~ Course & Med Decision Making Course & Med Decision Making Pertinent Imaging studies reviewed. (See chart for details) discharge: I've spoken with the patient and/or caregivers. I've explained the patient's condition, diagnosis and treatment plan based on information available to me at this time. I've answered the patient's and/or caregivers questions and addressed any concerns. The patient and/or caregivers have a good understanding the patient's diagnosis, condition and treatment plan as can be expected at this point. Vital signs have been stabilized. The patient's condition is stable for discharge from the emergency department. The patient will pursue further outpatient evaluation with her primary care provider or other designated consulting physician as outlined in the discharge instructions. Patient and/or caregivers are agreeable to this plan of care and follow-up instructions have been explained in detail. The patient and/or caregivers have received these instructions in written format and expressed understanding of these discharge instructions. The patient and her caregivers are aware that if any significant change in condition or worsening of symptoms should prompt him to immediately return to this of the closest emergency department. If an emergent department is not readily available I would encourage him to call 911. Dragon Disclaimer Dragon Disclaimer This electronic medical record was generated, in whole or in part, using a voice recognition dictation system. Departure Departure: Impression: Primary Impression: Acute myofascial strain of lumbosacral region Additional Impressions: Fall from slipping on ice Morbid obesity with BMI of 60.0-69.9, adult Disposition: HOME, SELF-CARE (@1052) Condition: IMPROVED Referrals: RAN HINKLE MD (PCP) Patient Instructions: Lumbosacral Strain Additional Instructions: Drink plenty of liquids Follow-up with your primary care physician in 3-5 days Return to ER if not getting better Apply ice on the affected area Scripts Hydrocodone Bit/Acetaminophen (NORCO 5-325 TABLET) 1 Each Tablet 1 TAB PO PRN Q6HRS PRN for PAIN, #10 TAB 0 Refills Prov: SANJEEV TORREZ MD 12/22/18 Naproxen (NAPROSYN) 500 Mg Tablet 500 MG PO BID for pain, #20 TAB Prov: SANJEEV TORREZ MD 12/22/18 Cyclobenzaprine Hcl (CYCLOBENZAPRINE HCL) 10 Mg Tablet 1 TAB PO TID for pain, #30 TAB Prov: SANJEEV TORREZ MD 12/22/18 Problem Qualifiers SANJEEV TORREZ MD Dec 22, 2018 10:56
[2018-12-22 11:06] VITALS: BP 158/98
== END 2018-12-22 11:05 | disposition home or self-care (01) ==
LOC: ER 09:32
DX: S39.012A Strain of muscle, fascia and tendon of lower back, initial encounter (principal); E66.01 Morbid (severe) obesity due to excess calories; F31.9 Bipolar disorder, unspecified; I10 Essential (primary) hypertension; F17.210 Nicotine dependence, cigarettes, uncomplicated; Z90.49 Acquired absence of other specified parts of digestive tract; Z68.44 Body mass index [BMI] 60.0-69.9, adult; Z98.890 Other specified postprocedural states; Z90.710 Acquired absence of both cervix and uterus; Z91.018 Allergy to other foods; W00.0XXA Fall on same level due to ice and snow, initial encounter; Y93.01 Activity, walking, marching and hiking; Y92.89 Other specified places as the place of occurrence of the external cause; Y99.8 Other external cause status
CPT/HCPCS: 72131; 96372; 99284; J1885; J2360

== ENCOUNTER 2020-08-16 17:09 | Emergency (ER) | payer OTHER ==
[~2020-08-16] VITALS: Ht 165.1 cm; Wt 190.0 kg
[~2020-08-16 17:09] MED LIST changes: +NAPR-683 PO
[2020-08-16] MEDS ORDERED: ONDANSETRON PF 4 MG/2 ML VIAL. IVP ONE (17:45)
[2020-08-16] MEDS ORDERED: MORPHINE SULFATE 4 MG/ML DISP.SYRIN. IV ONE (17:45)
--- NOTE | 2020-08-16 17:59 | PHYS DOC ---
Past History Past Medical History: Bipolar, Depression, Hypertension (MYKE JORDAN MD) Past Surgical History: Cholecystectomy, , Hysterectomy (MYKE JORDAN MD) Smoking: Cigarettes Alcohol Use: None Drug Use: None (MYKE JORDAN MD) Adult General Chief Complaint Chief Complaint: SHORTNESS OF BREATH HPI HPI Patient is a 44-year-old female with past medical history of congestive heart failure, hypertension, morbid obesity who presents to the emergency room complaining of 3 hours of chest pressure, increased shortness of breath, abdominal pain, nausea. She states the abdominal pain only happens when she is setting up and it feels like sharp stabbing knife into her abdomen. She states that it makes her very nauseous when this happens. She has not had any vomiting. She has been having constant chest pressure and shortness of breath for the last 3 to 4 hours. 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 Patient is coughing up thick yellow sputum but denies any fever. She has been recently swabbed for coronavirus because of a exposure however that was a week ago. At that time the test was negative. (MYKE JORDAN MD) Review of Systems Review of Systems General: Denies fever, chills, sweats, fatigue Eyes: Denies drainage, blurred vision, eye redness HENT: Denies rhinorrhea, sore throat, earache Respiratory: Reports cough, shortness of breath Cardiac: Reports chest pain, edema. Denies palpitations GI: reports abdominal pain, nausea. Denies vomiting, diarrhea, constipation MSK: Denies neck pain. Reports back pain Skin: Denies rash, jaundice Neuro: Denies headache, dizziness Psychiatric: Denies SI/HI (MYKE JORDAN MD) Current Medications Current Medications Current Medications Medications (Trade) Dose Ordered Sig/Sonu Start Time Stop Time Status Last Admin Dose Admin Ceftriaxone Sodium 1 gm/ Sodium Chloride 50 ml @ 100 mls/hr 1X ONCE 08/16/20 17:45 08/16/20 18:14 Morphine Sulfate (Morphine 4mg Syringe) 4 mg 1X ONCE 08/16/20 17:45 08/16/20 17:48 DC Ondansetron HCl (Zofran) 4 mg 1X ONCE 08/16/20 17:45 08/16/20 17:48 DC (MYKE JORDAN MD) Allergies Allergies Allergies Coded Allergies Type Severity Reaction Last Updated Verified wilder Allergy Severe sob 11/10/17 Yes (MYKE JORDAN MD) Physical Exam Physical Exam General: Awake, alert, NAD. Well Nourished, well hydrated. Cooperative. Morbidly obese HEENT: Atraumatic, EOMI, PERRL, airway patent, moist oral mucosa Neck: Supple, trachea midline Respiratory: Mild tachypnea, decreased breath sounds bilaterally, no respiratory distress CV: Tachycardic, no murmur, cap refill <2, bilateral pitting edema GI: Soft, nondistended, nontender, no masses MSK: No obvious deformities Skin: Warm, dry, intact Neuro: A&O x3, speech NL, sensory and motor grossly intact, no focal deficits Psych: Normal affect, normal mood, not suicidal or homicidal (MYKE JORDAN MD) EKG EKG [] (MYKE JORDAN MD) Radiology/Procedures Radiology/Procedures [] (MYKE JORDAN MD) Course & Med Decision Making Course & Med Decision Making Pertinent Labs and Imaging studies reviewed. (See chart for details) Patient is a 44-year-old female with a complicated past medical history presents to the emergency room complaining of shortness of breath, chest pain, abdominal pain, nausea. At this time it is unclear whether this is due to her chronic medical issues or if she has an acute issue occurring at this time. Differential diagnosis includes coronavirus 19 versus acute on chronic congestive heart failure versus ACS versus electrolyte abnormalities versus viral syndrome. Work-up was ordered including blood cultures, lactic due to significant tachycardia. Patient was given Rocephin, morphine, Zofran. Will refrain from fluids at this time as it is possible patient may be in congestive heart failure. Patient discussed with Dr. Garcia who will assume care. (MYKE JORDAN MD) Course & Med Decision Making See Dr. Jordan chart for details. (ADIS GARCIA MD) Dragon Disclaimer Dragon Disclaimer This electronic medical record was generated, in whole or in part, using a voice recognition dictation system. (MYKE JORDAN MD) Departure Departure: Impression: Primary Impression: Shortness of breath Additional Impression: Chest pain Disposition: ADMITTED INPATIENT Condition: STABLE Referrals: RAN HINKLE MD (PCP) Problem Qualifiers MYKE JORDAN MD Aug 16, 2020 17:59 ADIS GARCIA MD Aug 17, 2020 09:26
--- NOTE | 2020-08-16 18:00 | EKG ---
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
[2020-08-16 18:19] LABS: BASO # 0.1 x10^3/uL (0.0-0.2); BASO % 1 % (0-3); EOS # 0.2 x10^3/uL (0.0-0.7); EOS % 2 % (0-3); HEMATOCRIT 35.9 % (36.0-47.0); HEMOGLOBIN 11.8 g/dL (12.0-15.5); LYMPH % 24 % (24-48); MEAN CORPUSCULAR HEMOGLOBIN 30 pg (25-35); MEAN CORPUSCULAR HGB CONC 33 g/dL (31-37); MEAN CORPUSCULAR VOLUME 89 fL (79-100); MONO # 1.2 x10^3/uL (0.0-1.1); MONO % 10 % (0-9); NEUT # 8.1 x10^3uL (1.8-7.7); NEUT % 64 % (31-73); PLATELET COUNT 431 x10^3/uL (140-400); RED BLOOD COUNT 4.01 x10^6/uL (3.50-5.40); RED CELL DISTRIBUTION WIDTH 15.6 % (11.5-14.5); WHITE BLOOD COUNT 12.6 x10^3/uL (4.0-11.0)
[2020-08-16] MEDS ORDERED: IV NORMAL SALINE 50ML 50 ML ONE (18:19)
[2020-08-16] MEDS ORDERED: cefTRIAXone SODIUM 1 GM VIAL ONE (18:19)
[2020-08-16 18:21] LABS: ALBUMIN 3.2 g/dL (3.4-5.0); ALBUMIN/GLOBULIN RATIO 0.9 (1.0-1.7); C REACTIVE PROTEIN 23.2 mg/L (0-3.3); CALCIUM 9.3 mg/dL (8.5-10.1); CREATININE 1.2 mg/dL (0.6-1.0); TOTAL BILIRUBIN 0.7 mg/dL (0.2-1.0); TOTAL PROTEIN 6.9 g/dL (6.4-8.2)
[2020-08-16 18:25] LABS: POTASSIUM 2.3 mmol/L (3.5-5.1)
[2020-08-16] MEDS ORDERED: POTASSIUM CHLORIDE 20 MEQ TABLET.ER. PO ONE (19:00)
[2020-08-16] MEDS ORDERED: SODIUM BICARB ADULT 8.4% 50 MEQ/50 ML DISP.SYRIN. IV ONE (19:00)
[2020-08-16] MEDS ORDERED: POTASSIUM CL 40MEQ IN 0.9%NACL 1,000 ML IV ONE (19:00)
[2020-08-16] MEDS ORDERED: AZITHROMYCIN 250 MG TABLET. PO ONE (19:15)
[2020-08-16] MEDS ORDERED: IV RINGERS SOLUTION,LACTATED 1,000 ML IV ONE (19:15)
[2020-08-16] MEDS ORDERED: ACETAMINOPHEN 325 MG TABLET PO PRN (19:45)
[2020-08-16] MEDS ORDERED: ONDANSETRON PF 4 MG/2 ML VIAL. IVP PRN (19:45)
[2020-08-16] MEDS ORDERED: ASPIRIN CHEWABLE 81 MG TABLET. PO ONE (20:00)
[2020-08-16] MEDS ORDERED: ENOXAPARIN ** NOTE DOSE ** SYRINGE SQ ONE ×2 (20:00→22:15)
[2020-08-16] MEDS ORDERED: IPRATRPIUM/ALBUTEROL 0.5/2.5MG 3 ML NEBU. NEB SCH (20:00)
[2020-08-16] MEDS ORDERED: MORPHINE SULFATE 10 MG/ML SYRINGE. SQ ONE ×2 (20:30→22:15)
--- NOTE | 2020-08-16 20:57 | RAD ---
Study: CR CHEST AP ONLY Indication: Chest pain. Comparison: 09/21/2018 Findings: The study is limited on account of patient body habitus. No significant change in the configuration of the cardiomediastinal silhouette/jace. Redemonstrated asymmetric elevation of the right hemidiaphragm likely with overlying volume loss. No lobar consolidation, large effusion or pneumothorax. Impression: Limited exam by patient body habitus. No significant change is identified since the 09/21/2018 comparison. Electronically signed by: XOCHILT CARRERA MD (08/16/2020 8:54 PM) [id number]
[2020-08-16] MEDS ORDERED: ALPRAZolam 0.25 MG TABLET ONE (22:20)
[2020-08-16] MEDS ORDERED: ALPRAZolam 0.25 MG TABLET PO ONE (22:30)
[2020-08-16 23:00] VITALS: BP 148/82
[2020-08-17] MEDS ORDERED: AZITHROMYCIN 250 MG TABLET. PO SCH (21:00)
--- NOTE | 2020-08-20 10:32 | NUR ---
IP: notified IP at [facility] of COVID result.
== END 2020-08-16 23:26 | disposition short-term general hospital (02) ==
LOC: ER 17:09
DX: R07.89 Other chest pain (principal); R06.02 Shortness of breath; I10 Essential (primary) hypertension; F31.9 Bipolar disorder, unspecified; F17.210 Nicotine dependence, cigarettes, uncomplicated; Z90.89 Acquired absence of other organs; Z98.890 Other specified postprocedural states; Z90.710 Acquired absence of both cervix and uterus; Z88.8 Allergy status to other drugs, medicaments and biological substances; Z20.828 Contact with and (suspected) exposure to other viral communicable diseases
CPT/HCPCS: 36415; 71045; 80053; 83605; 83880; 84484; 85025; 86140; 87040; 93005; 96360; 96361; 96365; 96372; 96375; 96376; 99285; J0456; J0696; J1650; J2270; J2405; U0003

== ENCOUNTER 2020-11-18 13:21 | Emergency (ER) | payer OTHER ==
[~2020-11-18] VITALS: Ht 165.1 cm; Wt 190.0 kg
--- NOTE | 2020-11-18 14:51 | PHYS DOC ---
Past History Past Medical History: Bipolar, Depression, Hypertension Additional Past Medical Histor: Pulmonary "problems" Past Surgical History: Cholecystectomy, , Hysterectomy Smoking: Cigarettes Alcohol Use: None Drug Use: None General Adult EDM: Chief Complaint: MECHANICAL FALL HPI: HPI: Patient is a 45-year-old female presents with headache and right shoulder pain. Patient states that she was in her bathroom today when her legs felt weak and went out from underneath her, patient states that she hit her head and her shoulder against her towel rack and lowered herself to the ground. Patient also complains of pain to her right ribs. Patient denies loss of consciousness, dizziness, nausea/vomiting, or vision changes. Review of Systems: Review of Systems: Constitutional: Denies fever or chills Eyes: Denies change in visual acuity HENT: Denies nasal congestion or sore throat Respiratory: Denies cough or shortness of breath Cardiovascular: Denies chest pain or edema GI: Denies abdominal pain, nausea, vomiting, bloody stools or diarrhea : Denies dysuria Musculoskeletal: Denies back pain or joint pain, reports right shoulder pain Integument: Denies rash Neurologic: Reports headache, denies focal weakness or vision changes Endocrine: Denies polyuria or polydipsia Lymphatic: Denies swollen glands Psychiatric: Denies depression or anxiety Allergies: Allergies: Allergies Coded Allergies Type Severity Reaction Last Updated Verified buckwheat Allergy Severe sob 11/10/17 Yes Physical Exam: PE: Constitutional: Well developed, well nourished, no acute distress, non-toxic appearance. [] HENT: Normocephalic, atraumatic, bilateral external ears normal, oropharynx moist, no oral exudates, nose normal. [] Eyes: PERRLA, EOMI, conjunctiva normal, no discharge. [] Neck: Normal range of motion, no tenderness, supple, no stridor. [] Cardiovascular:Heart rate regular rhythm, no murmur [] Lungs & Thorax: Bilateral breath sounds clear to auscultation [] Abdomen: Bowel sounds normal, soft, no tenderness, no masses, no pulsatile masses. [] Skin: Warm, dry, no erythema, no rash. [] Back: No tenderness, no CVA tenderness. [] Extremities: Right shoulder tenderness, no cyanosis, no clubbing, ROM intact, no edema. [] Neurologic: Alert and oriented X 3, normal motor function, normal sensory function, no focal deficits noted. [] Psychologic: Affect normal, judgement normal, mood normal. [] Current Patient Data: Vital Signs: Vital Signs Date Time Temp Pulse Resp B/P (MAP) Pulse Ox O2 Delivery O2 Flow Rate FiO2 11/18/20 13:33 98.0 97 16 137/70 (92) 98 Room Air EKG: EKG: [] Radiology/Procedures: Radiology/Procedures: []XAM: 3 Views Right Shoulder DATE: 11/18/2020 2:56 PM INDICATION: fall, shoulder pain, right COMPARISON: No Prior FINDINGS: There is no evidence for acute fracture or dislocation. AC joint is congruent. AC joint DJD. Humeral head is not high riding. Right hilar and lung base calcifications likely calcified lymph nodes/calcific granuloma, only partially included in the [id number]. IMPRESSION: 1. No acute fracture or dislocation. 2. AC joint DJD. Electronically signed by: Gavin Eric MD (11/18/2020 3:22 PM) [id number] EXAM: Head CT without contrast. HISTORY: Fall. TECHNIQUE: Computed tomographic images of the head were obtained without contrast. *One or more of the following individualized dose reduction techniques were utilized for this examination: 1. Automated exposure control. 2. Adjustment of the mA and/or kV according to patient size. 3. Use of iterative reconstruction technique. COMPARISON: 11/21/2017. FINDINGS: There is no acute or subacute extra-axial or intraparenchymal hemorrhage. There is no mass effect or midline shift. There is no hydrocephalus. There are areas of decreased attenuation within the cerebral white matter, nonspecific and likely related to chronic small vessel disease. The visualized portions of the orbits, paranasal sinuses and mastoid air cells are unremarkable. No suspicious calvarial lesion is seen. IMPRESSION: No acute intracranial findings. Electronically signed by: Cherise Henry MD (11/18/2020 3:16 PM) [id number] Heart Score: Risk Factors: Risk Factors: DM, Current or recent (<one month) smoker, HTN, HLP, family history of CAD, obesity. Risk Scores: Score 0 - 3: 2.5% MACE over next 6 weeks - Discharge Home Score 4 - 6: 20.3% MACE over next 6 weeks - Admit for Clinical Observation Score 7 - 10: 72.7% MACE over next 6 weeks - Early Invasive Strategies Course & Med Decision Making: Course & Med Decision Making Pertinent Labs and Imaging studies reviewed. (See chart for details) []Patient is a 45-year-old female presents with headache and right shoulder pain. Patient states that she was in her bathroom today when her legs felt weak and went out from underneath her, patient states that she hit her head and her shoulder against her towel rack and lowered herself to the ground. Patient also complains of pain to her right ribs. Patient denies loss of consciousness, dizziness, nausea/vomiting, or vision changes. We will order CT of head to rule out bleeding. EKG ordered to rule out any cardiac abnormalities. Right shoulder x-ray ordered today rule out fractures. Shoulder Xray shows 1. No acute fracture or dislocation.2. AC joint DJD. CT of head negative, No acute intracranial findings. Will send patient home with sling for right shoulder pain. Take ibuprofen and Tylenol at home for discomfort. RICE.Patient to follow up with PCP if symptoms continue. Return to ED with worsening symptoms. Dragon Disclaimer: Dragon Disclaimer: This electronic medical record was generated, in whole or in part, using a voice recognition dictation system. Departure Departure: Impression: Primary Impression: Shoulder pain, acute Qualified Codes: M25.511 - Pain in right shoulder Disposition: 01 DC HOME SELF CARE/HOMELESS Condition: GOOD Referrals: MENDOZA OSBORN (PCP) Patient Instructions: Shoulder Pain, [id number] Additional Instructions: Patient home with sling for right shoulder pain. Take ibuprofen and Tylenol at home for discomfort. RICE.Patient to follow up with PCP if symptoms continue. Return to ED with worsening symptoms. LISA CASTILLO APRN Nov 18, 2020 14:51
--- NOTE | 2020-11-18 15:18 | RAD ---
EXAM: Head CT without contrast. HISTORY: Fall. TECHNIQUE: Computed tomographic images of the head were obtained without contrast. *One or more of the following individualized dose reduction techniques were utilized for this examina tion: 1. Automated exposure control. 2. Adjustment of the mA and/or kV according to patient size. 3. Use of iterative reconstruction technique. COMPARISON: 11/21/2017. FINDINGS: There is no acute or subacute extra-axial or intraparenchymal hemorrhage. There is no mass effect or midline shift. There is no hydrocephalus. There are areas of decreased attenuation within the cerebral white matter, nonspecific and likely rel ated to chronic small vessel disease. The visualized portions of the orbits, paranasal sinuses and mastoid air cells are unremarkable. No s uspicious calvarial lesion is seen. IMPRESSION: No acute intracranial findings. Electronically signed by: Cherise Henry MD (11/18/2020 3:16 PM) [id number]
--- NOTE | 2020-11-18 15:24 | RAD ---
EXAM: 3 Views Right Shoulder DATE: 11/18/2020 2:56 PM INDICATION: fall, shoulder pain, right COMPARISON: No Prior FINDINGS: There is no evidence for acute fracture or dislocation. AC joint is congruent. AC joint DJD. Humeral head is not high riding. Right hilar and lung base calcifications likely calcified lymph nodes/calcif ic granuloma, only partially included in the [id number]. IMPRESSION: 1. No acute fracture or dislocation. 2. AC joint DJD. Electronically signed by: Gavin Eric MD (11/18/2020 3:22 PM) [id number]
[2020-11-18 15:52] VITALS: BP 135/73
== END 2020-11-18 16:16 | disposition home or self-care (01) ==
LOC: ER 13:21
DX: M25.511 Pain in right shoulder (principal); R51.9 Headache, unspecified; I10 Essential (primary) hypertension; F31.9 Bipolar disorder, unspecified; F17.210 Nicotine dependence, cigarettes, uncomplicated; Z88.8 Allergy status to other drugs, medicaments and biological substances; W22.8XXA Striking against or struck by other objects, initial encounter; Y93.89 Activity, other specified; Y92.091 Bathroom in other non-institutional residence as the place of occurrence of the external cause; Y99.8 Other external cause status
CPT/HCPCS: 70450; 73030; 99284

== ENCOUNTER 2021-06-08 16:01 | Emergency (ER) | payer OTHER ==
[~2021-06-08] VITALS: Ht 165.1 cm; Wt 190.0 kg
[2021-06-08 17:23] LABS: BASO # 0.1 x10^3/uL (0.0-0.2); BASO % 1 % (0-3); EOS # 0.3 x10^3/uL (0.0-0.7); EOS % 3 % (0-3); HEMATOCRIT 33.7 % (36.0-47.0); LYMPH # 1.7 x10^3/uL (1.0-4.8); LYMPH % 18 % (24-48); MEAN CORPUSCULAR HEMOGLOBIN 29 pg (25-35); MEAN CORPUSCULAR HGB CONC 33 g/dL (31-37); MEAN CORPUSCULAR VOLUME 88 fL (79-100); MONO # 0.7 x10^3/uL (0.0-1.1); MONO % 7 % (0-9); NEUT # 6.7 x10^3uL (1.8-7.7); NEUT % 71 % (31-73); PLATELET COUNT 323 x10^3/uL (140-400); RED BLOOD COUNT 3.85 x10^6/uL (3.50-5.40); WHITE BLOOD COUNT 9.6 x10^3/uL (4.0-11.0)
[2021-06-08 17:32] LABS: CALCIUM 8.6 mg/dL (8.5-10.1); CREATININE 0.9 mg/dL (0.6-1.0); POTASSIUM 4.4 mmol/L (3.5-5.1)
--- NOTE | 2021-06-08 17:51 | RAD ---
Chest AP portable at 1738: Reason for examination: Chest pain. Comparison is made to previous study dated 08/16/2020. The heart size is normal. Mediastinum is unremarkable. Lung layne show linear atelectasis in the rig ht upper lobe and bilaterally in the lower lobes. No consolidated infiltrates or gross pleural effusi ons are evident.. No acute bony abnormalities are seen. Impression: Linear atelectasis in the right upper lobe and at the lung bases bilaterally. Electronically signed by: Ellen Amezcua MD (06/08/2021 5:48 PM) [email or web address]
--- NOTE | 2021-06-08 18:10 | PHYS DOC ---
Past History Past Medical History: Bipolar, Depression, Hypertension Additional Past Medical Histor: Pulmonary "problems" Past Surgical History: Appendectomy, Cholecystectomy, , Hysterectomy Smoking: Cigarettes Alcohol Use: None Drug Use: None General Adult EDM: Chief Complaint: SHORTNESS OF BREATH HPI: HPI: 45 yo female presents with SOB, fatigue, headache symptoms for a couple of days. She has asthma at baseline and is on 2L of oxygen at baseline. She is not requiring more oxygen to maintain her saturations. She got her 1st COVID vaccination 1 week ago. No fever at home or in ED. She is using her breathing treatments at home as prescribed. She has had low K+ in the past when she felt like this. She has mild chest pain that is a dull ache. Review of Systems: Review of Systems: Constitutional: Denies fever or chills Eyes: Denies change in visual acuity HENT: Denies nasal congestion or sore throat Respiratory: shortness of breath Cardiovascular: Chest pain GI: Denies abdominal pain, nausea, vomiting, bloody stools or diarrhea : Denies dysuria Musculoskeletal: Denies back pain or joint pain Integument: Denies rash Neurologic: Denies headache, focal weakness or sensory changes Endocrine: Denies polyuria or polydipsia Lymphatic: Denies swollen glands Psychiatric: Denies depression or anxiety Allergies: Allergies: Allergies Coded Allergies Type Severity Reaction Last Updated Verified buckwheat Allergy Severe sob 11/10/17 Yes Physical Exam: PE: Constitutional: Well developed, well nourished, morbidly obese, no acute distress, non-toxic appearance. [] HENT: Normocephalic, atraumatic, bilateral external ears normal, oropharynx moist, no oral exudates, nose normal. [] Eyes: PERRLA, EOMI, conjunctiva normal, no discharge. [] Neck: Normal range of motion, no tenderness, supple, no stridor. [] Cardiovascular: Heart rate 97, regular rhythm, no murmur [] Lungs & Thorax: Bilateral breath sounds clear to auscultation [] Abdomen: Bowel sounds normal, soft, no tenderness, no masses, no pulsatile masses. [] Skin: Warm, dry, no erythema, no rash. [] Back: No tenderness, no CVA tenderness. [] Extremities: No tenderness, no cyanosis, no clubbing, ROM intact, no edema. [] Neurologic: Alert and oriented X 3, normal motor function, normal sensory function, no focal deficits noted. [] Psychologic: Affect normal, judgement normal, mood normal. [] Current Patient Data: Labs: Laboratory Tests Test 06/08/21 16:59 White Blood Count 9.6 x10^3/uL (4.0-11.0) Red Blood Count 3.85 x10^6/uL (3.50-5.40) Hemoglobin 11.0 g/dL (12.0-15.5) L Hematocrit 33.7 % (36.0-47.0) L Mean Corpuscular Volume 88 fL (79-100) Mean Corpuscular Hemoglobin 29 pg (25-35) Mean Corpuscular Hemoglobin Concent 33 g/dL (31-37) Red Cell Distribution Width 15.0 % (11.5-14.5) H Platelet Count 323 x10^3/uL (140-400) Neutrophils (%) (Auto) 71 % (31-73) Lymphocytes (%) (Auto) 18 % (24-48) L Monocytes (%) (Auto) 7 % (0-9) Eosinophils (%) (Auto) 3 % (0-3) Basophils (%) (Auto) 1 % (0-3) Neutrophils # (Auto) 6.7 x10^3uL (1.8-7.7) Lymphocytes # (Auto) 1.7 x10^3/uL (1.0-4.8) Monocytes # (Auto) 0.7 x10^3/uL (0.0-1.1) Eosinophils # (Auto) 0.3 x10^3/uL (0.0-0.7) Basophils # (Auto) 0.1 x10^3/uL (0.0-0.2) Sodium Level 141 mmol/L (136-145) Potassium Level 4.4 mmol/L (3.5-5.1) Chloride Level 102 mmol/L (98-107) Carbon Dioxide Level 29 mmol/L (21-32) Anion Gap 10 (6-14) Blood Urea Nitrogen 15 mg/dL (7-20) Creatinine 0.9 mg/dL (0.6-1.0) Estimated GFR (Cockcroft-Gault) 68.0 Glucose Level 104 mg/dL (70-99) H Calcium Level 8.6 mg/dL (8.5-10.1) Troponin I Quantitative < 0.017 ng/mL (0-0.055) Vital Signs: Vital Signs Date Time Temp Pulse Resp B/P (MAP) Pulse Ox O2 Delivery O2 Flow Rate FiO2 06/08/21 16:15 98.0 101 20 145/93 97 Nasal Cannula 2.0 EKG: EKG: Sinus Tach, rate 102, normal axis, no ST elevation or depression[] Radiology/Procedures: Radiology/Procedures: [] Impressions: Chest AP portable at 1738: Reason for examination: Chest pain. Comparison is made to previous study dated 08/16/2020. The heart size is normal. Mediastinum is unremarkable. Lung layne show linear atelectasis in the right upper lobe and bilaterally in the lower lobes. No consolidated infiltrates or gross pleural effusions are evident.. No acute bony abnormalities are seen. Impression: Linear atelectasis in the right upper lobe and at the lung bases bilaterally. Electronically signed by: Ellen Pierce MD (06/08/2021 5:48 PM) [facility] DICTATED AND SIGNED BY: ELLEN PIERCE MD DATE: 06/08/21 1747 CC: DENNIS LENTZ DO; CONSUELO GORMAN APRN; MENDOZA OSBORN ~MTH0 0 Heart Score: C/O Chest Pain: Yes HEART Score for Chest Pain: HEART Score for Chest Pain Response (Comments) Value History Slighlty/Non-Suspicious 0 ECG Nonspecific Repolarizatio 1 Age < 45 0 Risk Factors 1 or 2 Risk Factors 1 Troponin < Normal Limit 0 Total 2 Risk Factors: Risk Factors: DM, Current or recent (<one month) smoker, HTN, HLP, family history of CAD, obesity. Risk Scores: Score 0 - 3: 2.5% MACE over next 6 weeks - Discharge Home Score 4 - 6: 20.3% MACE over next 6 weeks - Admit for Clinical Observation Score 7 - 10: 72.7% MACE over next 6 weeks - Early Invasive Strategies Course & Med Decision Making: Course & Med Decision Making Pertinent Labs and Imaging studies reviewed. (See chart for details) [] Dragon Disclaimer: Dragon Disclaimer: This electronic medical record was generated, in whole or in part, using a voice recognition dictation system. Departure Departure: Impression: Primary Impression: Viral syndrome Additional Impression: Suspected 2019 novel coronavirus infection Disposition: HOME / SELF CARE / HOMELESS Condition: STABLE Referrals: MENDOZA OSBORN (PCP) Patient Instructions: Viral Syndrome Additional Instructions: You have been tested for or diagnosed with COVID-19. It is an infection caused by a new type of coronavirus. COVID-19 will cause cold-like or mild flu symptoms in most. It can cause more severe symptoms like problems breathing in some. There is no treatment for COVID-19. The body will clear the infection over time. Self-care will help to ease discomfort. Steps to Take: Self-Care Rest as needed. Healthy habits may help you feel better. Steps include: Choose healthy foods including fruits and vegetables. Drink water throughout the day. Get plenty of sleep each night. If you smoke, try to quit. It may ease breathing. Avoid alcohol. Keep Others Healthy The virus can spread to others. Droplets are released every time you sneeze or cough. The droplets can get into the mouth, nose, or eyes of people near you and lead to infection. To lower the chances of spreading COVID-19 to others: Stay at home until your doctor has said it is safe to leave. If you tested positive this will mean staying isolated until both of the following are true: At least 7 days have passed since the start of illness. You are free of fever for at least 72 hours without the use of medicine. During this time: - Avoid public areas, events, or transportation. Do not return to work or school until your doctor has said it is safe to do so. - Call ahead if you need to go to a medical center. Let them know you may have COVID-19. It will help them guide you where to go. They may also ask you to wear a facemask when you come to the office. - If you call for emergency medical services, let them know you may have COVID- 19. While at home: - Try to avoid close contact with others. Stay about 6 feet away. - If possible, spend most of your time in a separate room from others. - Use a face mask if you will be in close contact with others such as sharing a room or vehicle. - Have someone wipe down common surfaces in the home. Use household supervisor chemical every day on areas like doorknobs, counters, or sinks. - Cough or sneeze into a tissue. Throw the tissue away right after use. If a tissue is not available, cough or sneeze into your elbow. - Wash your hands often. Wash them after sneezing or coughing. Use soap and water and wash for at least 20 seconds. Alcohol based hand tuckpointer cleaner caulker can be used if soap and water is not available. - Do not prepare food for others. Avoid sharing personal items like forks, spoons, or toothbrushes. - Avoid close contact with pets while you are sick. There is no evidence of the virus passing to pets. This is a safety step until more is known about this virus. Isolation can be frustrating. Social interaction can help. Keep in touch with friends and family through phone and tech options. You can still interact with others in your home, just keep a safe distance of about 6 feet. Follow-up: Your doctors office will check in with you to see if there are any changes in your health. You may be asked to keep track of symptoms to share with them. They will also l et you know when you are clear to be in public again. Problems to Look Out For: Contact your doctor if your recovery is not going as you expect. Get emergency care if you have problems such as: - Trouble breathing - Nonstop chest pain or pressure - Changes in awareness, confusion, or problems waking - Lips or face have bluish color - Worsening of symptoms If you think you have an emergency, call for emergency medical services right away. As taken from [facility]ending [facility] to [facility] DENNIS LENTZ DO Jun 08, 2021 18:10
[2021-06-08 18:23] VITALS: BP 152/87
--- NOTE | 2021-06-08 20:43 | EKG ---
[address] [address] Test Date: 2021-06-08 Test Time: 16:09:04 Pat Name: JEANNINE HORTON Department: Room: Gender: F [employer] Operator: KATALINA : 1975 Requested By: CONSUELO GORMAN Order Number: [id number] Reading MD: Measurements Intervals [place] Rate: 102 P: 52 VT: 186 QRS: 15 QRSD: 80 T: 19 QT: 346 QTc: 455 Interpretive Statements SINUS TACHYCARDIA NO SPECIFIC ECG ABNORMALITIES RI6.02 No previous ECG available for comparison
== END 2021-06-08 18:24 | disposition home or self-care (01) ==
LOC: ER 16:01
DX: B34.9 Viral infection, unspecified (principal); I10 Essential (primary) hypertension; F31.9 Bipolar disorder, unspecified; F17.210 Nicotine dependence, cigarettes, uncomplicated; Z20.822 Contact with and (suspected) exposure to COVID-19; Z90.89 Acquired absence of other organs; Z90.49 Acquired absence of other specified parts of digestive tract; Z98.890 Other specified postprocedural states; Z90.710 Acquired absence of both cervix and uterus; Z88.8 Allergy status to other drugs, medicaments and biological substances
CPT/HCPCS: 36415; 71045; 80048; 84484; 85025; 93005; 99285; C9803; U0003

== ENCOUNTER 2021-07-23 10:20 | Emergency (ER) | payer OTHER, MEDICARE ==
[~2021-07-23] VITALS: Ht 165.1 cm; Wt 190.0 kg
[2021-07-23] MEDS ORDERED: IV NORMAL SALINE 1,000ML 1,000 ML IV ONE (11:15)
--- NOTE | 2021-07-23 11:15 | PHYS DOC ---
Past History Past Medical History: Bipolar, Depression, Hypertension Additional Past Medical Histor: Pulmonary "problems" Past Surgical History: Appendectomy, Cholecystectomy, , Hysterectomy Smoking: Cigarettes Alcohol Use: Occasionally Drug Use: None General Adult EDM: Chief Complaint: HEADACHE HPI: HPI: Patient is a 45-year-old female who presents to the ER today for a 2-day history of headache. Patient states that this is one of the worst headache she has ever had. She states that the headache starts behind her eyes and radiates to the back of her head. She rates it 7 out of 10. No treatment prior to arrival. She is also reporting nausea, phonophobia, photophobia. Patient has a history of migraine headaches and seizures. She states that her last seizure was on Tuesday. She was also positive for COVID-19 5 weeks ago. Patient has a history of congestive heart failure and wears 2 L of oxygen at all times. Patient denies thunderclap headache, neck stiffness, fevers. Review of Systems: Review of Systems: 14 body systems of the review of systems have been reviewed. See HPI for pertinent positive and negative responses, otherwise all other systems are negative, nonpertinent or noncontributory Allergies: Allergies: Allergies Coded Allergies Type Severity Reaction Last Updated Verified buckwheat Allergy Severe sob 11/10/17 Yes Physical Exam: PE: Constitutional: Well developed, well nourished, no acute distress, non-toxic appearance. [] HENT: Normocephalic, atraumatic, bilateral external ears normal, fluid behind left tympanic membrane but no erythema noted, oropharynx moist, no oral exudates, nose normal. [] Eyes: PERRL, 4 mm bilaterally, EOMI, conjunctiva normal, no discharge. [] Neck: Normal range of motion, no tenderness, supple, no stridor. [] Cardiovascular:Heart rate regular rhythm, no murmur [] Lungs & Thorax: Bilateral breath sounds clear to auscultation, patient wears 2 L via nasal cannula at all times she is CHF, nonlabored [] Abdomen: Bowel sounds normal, soft, obese, no tenderness, no masses, no pulsatile masses. [] Skin: Warm, dry, no erythema, no rash. [] Back: Normal range of motion Extremities: No tenderness, no cyanosis, no clubbing, ROM intact, no edema. [] Neurologic: Alert and oriented X 3, normal motor function, normal sensory function, no focal deficits noted, negative meningeal sign, negative thunderclap headache. [] Psychologic: Affect normal, judgement normal, mood normal. [] Current Patient Data: Labs: Laboratory Tests Test 07/23/21 11:40 White Blood Count 7.3 x10^3/uL Red Blood Count 3.90 x10^6/uL Hemoglobin 10.8 g/dL Hematocrit 34.1 % Mean Corpuscular Volume 87 fL Mean Corpuscular Hemoglobin 28 pg Mean Corpuscular Hemoglobin Concent 32 g/dL Red Cell Distribution Width 14.7 % Platelet Count 368 x10^3/uL Neutrophils (%) (Auto) 66 % Lymphocytes (%) (Auto) 22 % Monocytes (%) (Auto) 7 % Eosinophils (%) (Auto) 4 % Basophils (%) (Auto) 1 % Neutrophils # (Auto) 4.8 x10^3uL Lymphocytes # (Auto) 1.6 x10^3/uL Monocytes # (Auto) 0.5 x10^3/uL Eosinophils # (Auto) 0.3 x10^3/uL Basophils # (Auto) 0.1 x10^3/uL Current Medications Medications (Trade) Dose Ordered Sig/Sonu Route PRN Reason Start Time Stop Time Status Last Admin Dose Admin Diphenhydramine HCl (Benadryl) 25 mg 1X ONCE IVP 07/23/21 11:45 07/23/21 11:46 DC 07/23/21 11:46 Prochlorperazine Edisylate (Compazine) 10 mg 1X ONCE IV 07/23/21 11:45 07/23/21 11:46 DC 07/23/21 11:46 Ketorolac Tromethamine (Toradol 30mg Vial) 30 mg 1X ONCE IVP 07/23/21 11:45 07/23/21 11:46 DC 07/23/21 11:47 Sodium Chloride 1,000 ml @ 1,000 mls/hr 1X ONCE IV 07/23/21 11:15 07/23/21 12:14 07/23/21 11:46 Ondansetron HCl (Zofran) 4 mg 1X ONCE IVP 07/23/21 12:30 07/23/21 12:31 Vital Signs: Vital Signs Date Time Temp Pulse Resp B/P (MAP) Pulse Ox O2 Delivery O2 Flow Rate FiO2 07/23/21 10:59 98.1 76 16 135/76 (95) 100 Room Air 2.0 EKG: EKG: [] Radiology/Procedures: Radiology/Procedures: [] Heart Score: C/O Chest Pain: No Risk Factors: Risk Factors: DM, Current or recent (<one month) smoker, HTN, HLP, family history of CAD, obesity. Risk Scores: Score 0 - 3: 2.5% MACE over next 6 weeks - Discharge Home Score 4 - 6: 20.3% MACE over next 6 weeks - Admit for Clinical Observation Score 7 - 10: 72.7% MACE over next 6 weeks - Early Invasive Strategies Course & Med Decision Making: Course & Med Decision Making Pertinent Labs and Imaging studies reviewed. (See chart for details) [] Patient is a 45-year-old female being seen in the ER for headache with nausea, photophobia, photophobia. Patient has a positive history of migraine headaches. Work-up in the ER consisted of blood work, CT scan of head because patient states this is one of the worst headache she is ever experienced. Patient was treated in the ER with migraine cocktail and normal saline. Patient's vital signs were stable in the ER. CBC unremarkable. Remainder pat clayton's lab work is pending at this time. Patient was unable to tolerate CT scan of head due to her CHF. And she is refusing it. Patient reports that she feels improvement in her symptoms after being treated in the ER would like to go home. Patient signed out AGAINST MEDICAL ADVICE. Patient acknowledges the risks of leaving AGAINST MEDICAL ADVICE. Mahin Disclaimer: Mahin Disclaimer: This electronic medical record was generated, in whole or in part, using a voice recognition dictation system. Departure Departure: Impression: Primary Impression: Migraine Qualified Codes: G43.009 - Migraine without aura, not intractable, without status migrainosus Disposition: LEFT AGAINST MEDICAL ADVICE Condition: STABLE Referrals: MENDOZA OSBORN (PCP) Patient Instructions: Migraine Headache Additional Instructions: You were seen in the ER today for a headache. Blood work was performed in the ER and it is pending. You decided to leave without obtaining results. You were unable to tolerate CT scan of your head due to your congestive heart failure and shortness of breath. You were treated in the ER with migraine cocktail and fluids. You reported improvement in your symptoms. You decided to sign out AGAINST MEDICAL ADVICE. Please follow-up with your primary care provider tomorrow regarding your ER visit. If you develop headache, vision changes, lightheadedness, mental status changes, intractable nausea or vomiting, high fevers refractory to treatment please return to the ER. EMERGENCY DEPARTMENT GENERAL DISCHARGE INSTRUCTIONS Thank you for coming to [facility] (ED) today and trusting us with you care. We trust that you had a positivie experience in our Emergency Department. If you wish to speak to the department management, you may call the director at . YOUR FOLLOW UP INSTRUCTIONS ARE FOLLOWS: 1. Do you have a private Doctor? If you do not have a private doctor, please ask for a resource list of physicians or clinics that may be able to assist you with follow up care. 2. The Emergency Physician has interpreted your x-rays. The X-Ray specialist will also review them. If there is a change in the findings, you will be notified in 48 hours when at all possible. 3. A lab test or culture has been done, your results will be reviewed and you will be notified if you need a change in treatment. ADDITIONAL INSTRUCTIONS AND INFORMATION: 1. Your care today has been supervised by a physician who is specially trained in emergency care. Many problems require more than one evaluation for a complete diagnosis and treatment. We recommend that you schedule your follow up appointment as recommended to ensure complete treatment of you illness or injury. If you are unable to obtain follow up care and continue to have a problem, or if your condition worsens, we recommend that you return to the ED. 2. We are not able to safely determine your condition over the phone nor are we able to give sound medical advice over the phone. For these safety reasons, if you call for medical advice we will ask you to come to the ED for further evaluation. 3. If you have any questions regarding these discharge instructions please call the ED at [phone]. SAFETY INFORMATION: In the interest of safety, wellness, and injury prevention; we encourage you to wear your sealbelt, if you smoke; quite smoking, and we encourage family to use a protective helmet for bicycling and other sporting events that present an increased risk for head injury. IF YOUR SYMPTOMS WORSEN OR NEW SYMPTOMS DEVELOP, OR YOU HAVE CONCERNS ABOUT YOUR CONDITION; OR IF YOUR CONDITION WORSENS WHILE YOU ARE WAITING FOR YOUR FOLLOW UP APPOINTMENT; EITHER CONTACT YOUR PRIMARY CARE DOCTOR, THE PHYSICIAN WHOSE NAME AND NUMBER YOU WERE GIVEN, OR RETURN TO THE ED IMMEDIATELY. CONSUELO GORMAN APRN Jul 23, 2021 11:15
[2021-07-23] MEDS ORDERED: diphenhydrAMINE 50 MG/ML VIAL IVP ONE (11:45)
[2021-07-23] MEDS ORDERED: KETOROLAC 30 MG/ML VIAL. IVP ONE (11:45)
[2021-07-23] MEDS ORDERED: PROCHLORPERAZINE 10 MG/2 ML VIAL. IV ONE (11:45)
[2021-07-23 12:04] LABS: BASO # 0.1 x10^3/uL (0.0-0.2); BASO % 1 % (0-3); EOS # 0.3 x10^3/uL (0.0-0.7); EOS % 4 % (0-3); HEMATOCRIT 34.1 % (36.0-47.0); HEMOGLOBIN 10.8 g/dL (12.0-15.5); LYMPH # 1.6 x10^3/uL (1.0-4.8); LYMPH % 22 % (24-48); MEAN CORPUSCULAR HEMOGLOBIN 28 pg (25-35); MEAN CORPUSCULAR HGB CONC 32 g/dL (31-37); MEAN CORPUSCULAR VOLUME 87 fL (79-100); MONO # 0.5 x10^3/uL (0.0-1.1); MONO % 7 % (0-9); NEUT # 4.8 x10^3uL (1.8-7.7); NEUT % 66 % (31-73); PLATELET COUNT 368 x10^3/uL (140-400); RED CELL DISTRIBUTION WIDTH 14.7 % (11.5-14.5); WHITE BLOOD COUNT 7.3 x10^3/uL (4.0-11.0)
[2021-07-23 12:12] VITALS: BP 140/76
[2021-07-23 12:19] LABS: CALCIUM 8.7 mg/dL (8.5-10.1); CREATININE 0.8 mg/dL (0.6-1.0); GFR 77.9; POTASSIUM 4.4 mmol/L (3.5-5.1)
[2021-07-23] MEDS ORDERED: ONDANSETRON PF 4 MG/2 ML VIAL. IVP ONE (12:30)
[2021-07-23 12:33] LABS: ALBUMIN 3.2 g/dL (3.4-5.0); ALBUMIN/GLOBULIN RATIO 0.8 (1.0-1.7); TOTAL BILIRUBIN 0.2 mg/dL (0.2-1.0); TOTAL PROTEIN 7.3 g/dL (6.4-8.2)
== END 2021-07-23 12:19 | disposition left against medical advice (07) ==
LOC: ER 10:20
DX: G43.009 Migraine without aura, not intractable, without status migrainosus (principal); F31.9 Bipolar disorder, unspecified; F17.210 Nicotine dependence, cigarettes, uncomplicated; Z91.018 Allergy to other foods
CPT/HCPCS: 36415; 80053; 85025; 96361; 96374; 96375; 99284; J0780; J1200; J1885; J7030

== ENCOUNTER 2021-08-27 14:26 | Observation (INO) | payer OTHER, MEDICARE ==
[~2021-08-27] VITALS: Ht 165.1 cm; Wt 194.1 kg
--- NOTE | 2021-08-27 14:40 | PHYS DOC ---
Past History Past Medical History: Bipolar, Depression, Hypertension Additional Past Medical Histor: Pulmonary "problems" Past Surgical History: Appendectomy, Cholecystectomy, , Hysterectomy Smoking: Cigarettes Alcohol Use: Occasionally Drug Use: None Adult General HPI HPI Patient is a 45-year-old female presenting for code stroke via EMS. Last known normal was 1350 hrs. Patient was at home when her daughter noticed that patient was slurring her words. There was concern for left lower face, left arm and left lower leg weakness. EMS was subsequently called. On arrival, patient was evaluated and actually had an unremarkable gait and ambulated onto ER gurney. [id number] glucose and vitals were unremarkable. There was subjective motor weakness appreciated with decreased lubricating specialist strength in left upper extremity in route to ER. On arrival, patient, patient reports decreased sensation to left face and motor strength of left upper extremity. She states she is anxious. She admits history of TIA for which she is on aspirin, states this occurred last year and she received TPA at that time. Has other issues such as hypertension, high cholesterol and recently got over Covid 2 months prior. She has had no change in baseline health, no recent fever or viral illness, no changes in medications, falls or other trauma, sick contacts or recent travel Review of Systems Review of Systems Fourteen body systems of review of systems have been reviewed. See HPI for pertinent positives and negative responses, other mccormack all other systems are negative, non-pertinent or non-contributory Allergies Allergies Allergies Coded Allergies Type Severity Reaction Last Updated Verified buckwheat Allergy Severe sob 11/10/17 Yes Physical Exam Physical Exam General: Appears well, non toxic, and comfortable, morbidly obese Skin: Warm, dry. Normal for ethnicity. HEENT: Atraumatic. PERRLA. Moist mucous membranes. Neck: Trachea midline. Normal ROM. No midline tenderness or meningeal signs Respiratory: Normal WOB. CTAB w/o w/r/r. No tachypnea. Cardiovascular: Regular rate and rhythm. Normal peripheral perfusion. No edema. Abdomen: Soft and protuberant. Non tender. No distension. Back: Normal ROM. No midline tenderness with palpation Musculoskeletal: No swelling or deformity. Neuro: Alert and oriented x 4. MAEE. GCS 15. Normal FNF. Negative pronator d rift. Unable to complete heel to guerrero due to sheer size. All cranial nerves II through XII testing intact besides decreased sensory function of left V2 and V3 distributions, decreased lubricating specialist strength 4/5 of left upper extremity versus contralateral limb, subjective decrease motor strength 4/5 of left lower extremity to hold versus contralateral limb due to body habitus/size. Normal speech. Psych: Normal affect and mood. Current Patient Data Vital Signs Vital Signs Date Time Temp Pulse Resp B/P (MAP) Pulse Ox O2 Delivery O2 Flow Rate FiO2 08/27/21 14:40 98.2 107 24 152/76 (101) 96 Room Air Vital Signs Date Time Temp Pulse Resp B/P (MAP) Pulse Ox O2 Delivery O2 Flow Rate FiO2 08/27/21 14:40 98.2 107 24 152/76 (101) 96 Room Air Lab Results Laboratory Tests Test 08/27/21 14:50 08/27/21 15:30 White Blood Count 9.7 x10^3/uL Red Blood Count 3.83 x10^6/uL Hemoglobin 10.7 g/dL Hematocrit 33.2 % Mean Corpuscular Volume 87 fL Mean Corpuscular Hemoglobin 28 pg Mean Corpuscular Hemoglobin Concent 32 g/dL Red Cell Distribution Width 14.6 % Platelet Count 415 x10^3/uL Neutrophils (%) (Auto) 70 % Lymphocytes (%) (Auto) 20 % Monocytes (%) (Auto) 5 % Eosinophils (%) (Auto) 4 % Basophils (%) (Auto) 1 % Neutrophils # (Auto) 6.8 x10^3uL Lymphocytes # (Auto) 2.0 x10^3/uL Monocytes # (Auto) 0.5 x10^3/uL Eosinophils # (Auto) 0.3 x10^3/uL Basophils # (Auto) 0.1 x10^3/uL Prothrombin Time 10.6 SEC Prothromb Time International Ratio 1.0 Activated Partial Thromboplast Time 23 SEC Sodium Level 139 mmol/L Potassium Level 3.3 mmol/L Chloride Level 98 mmol/L Carbon Dioxide Level 33 mmol/L Anion Gap 8 Blood Urea Nitrogen 12 mg/dL Creatinine 0.7 mg/dL Estimated GFR (Cockcroft-Gault) 90.9 Glucose Level 125 mg/dL Calcium Level 9.3 mg/dL Troponin I Quantitative < 0.017 ng/mL SARS-CoV-2 Antigen (Rapid) Negative Current Medications Medications (Trade) Dose Ordered Sig/Sonu Route PRN Reason Start Time Stop Time Status Last Admin Dose Admin Iohexol (Omnipaque 350 Mg/ml) 100 ml 1X ONCE IV 08/27/21 15:15 08/27/21 15:16 DC 08/27/21 15:32 Info (Do NOT chart on this entry -- for MONITORING) 1 each PRN DAILY PRN MC SEE COMMENTS 08/27/21 15:15 08/29/21 15:14 Lorazepam (Ativan Inj) 0.5 mg 1X ONCE IVP 08/27/21 15:15 08/27/21 15:26 DC 08/27/21 15:24 EKG EKG EKG ordered and interpreted by myself at 1450 hrs. as sinus tachycardia at 102 bpm, unremarkable intervals, no axis deviation, there is artifact on the EKG tracing due to patient motion but no obvious STEMI Radiology/Procedures Radiology/Procedures EXAM: CT HEAD WITHOUT CONTRAST. HISTORY: Code stroke. Left weakness. TECHNIQUE: Computed tomography of the head was performed without intravenous contrast. *One or more of the following individualized dose reduction techniques were utilized for this examination: 1. Automated exposure control. 2. Adjustment of the mA and/or kV according to patient size. 3. Use of iterative reconstruction technique. COMPARISON: 11/18/2020. FINDINGS: There is no intracranial hemorrhage. Guajardo-white differentiation is preserved. The ventricles are normal in size and position. The visualized paranasal sinuses appear clear. The orbits are unremarkable. The temporal bones are unremarkable. The calvarium reveals no suspicious lesions. IMPRESSION: 1. No intracranial hemorrhage. These findings were called to Dr. Hunter by Noel Dunlap on 08/27/2021 at 2:39 PM. FOR INTERNAL CODING PURPOSES RESULT CODE: (C) Electronically signed by: Eve Dunlap MD (08/27/2021 2:43 PM) [id number] ///////////////////////////////////////////////////// CTA HEAD AND NECK W/WO CONTRAST History: Left facial sensory deficit. Decreased left upper extremity motor strength. Technique: After bolus of intravenous contrast, volumetric CT data acquisition was acquired of the head and neck. Multiplanar reconstruction images to include MIP and 3-D reconstruction images are submitted. Any determination of stenosis is based on NASCET criteria. Comparison: CT head 08/27/2021. Findings: Angiogram neck: Aortic arch: Normal caliber. Three-vessel configuration Common carotid arteries: No stenosis, occlusion or dissection. Internal carotid arteries: No stenosis, occlusion or dissection. External carotid arteries: Patent Vertebral arteries: No stenosis, occlusion or dissection. Angiogram head: ICA: No stenosis, occlusion or aneurysm. MCA: No stenosis, occlusion or aneurysm. AJAY: Diminutive right A1 segment with normally enhancing right AJAY distal to the anterior communicating. No left AJAY stenosis, occlusion or aneurysm. ADVANCED PRACTICE RN: No stenosis, occlusion or aneurysm. Basilar artery: No stenosis, occlusion or aneurysm. Distal vertebral arteries: No stenosis, occlusion or aneurysm. Other: Imaged lung apices are unremarkable. Soft tissues appear normal. No pathologic osseous lesions. Impression: 1. Diminutive right A1 segment with normally enhancing right AJAY distal to the anterior communicating is favored to be variant anatomy, however a A1 segment occlusion is not excluded. 2. No stenosis, occlusion or dissection in the cervical arteries. Findings discussed with Dr. Hunter at 08/27/2021 4:07 PM. FOR INTERNAL CODING PURPOSES RESULT CODE: (C) Electronically signed by: Bismark Wolf MD (08/27/2021 4:10 PM) [id number] Heart Score C/O Chest Pain: No HEART Score for Chest Pain: HEART Score for Chest Pain Response (Comments) Value History Slighlty/Non-Suspicious 0 ECG Normal 0 Age < 45 0 Risk Factors >3 Risk Factors or Hx CAD 2 Troponin < Normal Limit 0 Total 2 Risk Factors: Risk Factors: DM, Current or recent (<one month) smoker, HTN, HLP, family history of CAD, obesity. Risk Scores: Risk Factors: DM, Current or recent (<one month) smoker, HTN, HLP, family history of CAD, obesity. Course & Med Decision Making Course & Med Decision Making Code stroke activated Patient immediately sent to CT scanning. Uddey-sn-lcey glucose unremarkable. Vitals obtained while transferred and CT head that was ultimately negative was obtained Patient brought back to room. NIH stroke scale performed and 3. V2 and V3 decreased sensation and 4/5 left upper arm and lower leg decreased motor strength Comprehensive ER work-up obtained and grossly nonconcerning. CTA showed potential congenital abnormality versus other but likely does not fully explain patient's symptoms. I discussed need for hospital transfer for neurology evaluation and MRI. [facility] denied, [facility] denied, [facility] denied all due to lack of capacity to accept patient due to ongoing COVID-19 pandemic I discussed case with Dr. Salinas, [facility] neurologist. He advised hospital admission to [facility] for continued neuro checks and addition of 75 mg p.o. Plavix. I have updated patient and daughter at bedside on proposed plan and all conversations and they were amenable. Patient reevaluated NIH stroke scale 0 with complete resolution of symptoms. Patient hemodynamically stable at time of hospital admission after discussion with tamara hospitalist who accepted patient under their care Dragon Disclaimer Dragon Disclaimer This electronic medical record was generated, in whole or in part, using a voice recognition dictation system. NIH Stroke Scale: NIH Stroke Scale Response (Comments) Value Level of Consciousness: 0 Alert/Responsive 0 LOC Questions: 0 Answers both correctly 0 LOC Commands: 0 Performs both tasks 0 Best Gaze: 0 Normal 0 Visual: 0 No visual loss 0 Facial Palsy: 0 Normal, symmetrical 0 Motor - Left Arm 1 Drifts, but can hold 1 Motor - Right Arm 0 No drift 0 Motor - Left Leg 1 Drift but can hold 1 Motor: Right Leg 0 No drift 0 Limb Ataxia: 0 Absent 0 Sensory: 1 Mid to moderate loss 1 Best Language: 0 Normal 0 Dysathria: 0 Normal 0 Extinction and Inattention: 0 Normal 0 Total 3 Departure Departure: Impression: Primary Impression: TIA (transient ischemic attack) Disposition: ADMITTED INPATIENT Admitting Physician: Luke Stanford Condition: STABLE Referrals: MENDOZA OSBORN (PCP) CHANDA HUNTER DO Aug 27, 2021 14:40
--- NOTE | 2021-08-27 14:45 | RAD ---
EXAM: CT HEAD WITHOUT CONTRAST. HISTORY: Code stroke. Left weakness. TECHNIQUE: Computed tomography of the head was performed without intravenous contrast. *One or more o f the following individualized dose reduction techniques were utilized for this examination: 1. Automated exposure control. 2. Adjustment of the mA and/or kV according to patient size. 3. Use of iterative reconstruction technique. COMPARISON: 11/18/2020. FINDINGS: There is no intracranial hemorrhage. Guajardo-white differentiation is preserved. The ventricle s are normal in size and position. The visualized paranasal sinuses appear clear. The orbits are unremarkable. The temporal bones are un remarkable. The calvarium reveals no suspicious lesions. IMPRESSION: 1. No intracranial hemorrhage. These findings were called to Dr. Knight by Noel Dunlap on 08/27/2021 at 2:39 PM. FOR INTERNAL CODING PURPOSES RESULT CODE: (C) Electronically signed by: Eve Dunlap MD (08/27/2021 2:43 PM) [id number]
[2021-08-27 14:59] LABS: BASO # 0.1 x10^3/uL (0.0-0.2); BASO % 1 % (0-3); EOS # 0.3 x10^3/uL (0.0-0.7); EOS % 4 % (0-3); HEMATOCRIT 33.2 % (36.0-47.0); HEMOGLOBIN 10.7 g/dL (12.0-15.5); LYMPH % 20 % (24-48); MEAN CORPUSCULAR HEMOGLOBIN 28 pg (25-35); MEAN CORPUSCULAR HGB CONC 32 g/dL (31-37); MEAN CORPUSCULAR VOLUME 87 fL (79-100); MONO # 0.5 x10^3/uL (0.0-1.1); MONO % 5 % (0-9); NEUT # 6.8 x10^3uL (1.8-7.7); NEUT % 70 % (31-73); PLATELET COUNT 415 x10^3/uL (140-400); RED BLOOD COUNT 3.83 x10^6/uL (3.50-5.40); RED CELL DISTRIBUTION WIDTH 14.6 % (11.5-14.5); WHITE BLOOD COUNT 9.7 x10^3/uL (4.0-11.0)
[2021-08-27 15:14] LABS: CALCIUM 9.3 mg/dL (8.5-10.1); CREATININE 0.7 mg/dL (0.6-1.0); GFR 90.9; POTASSIUM 3.3 mmol/L (3.5-5.1)
[2021-08-27] MEDS ORDERED: IOHEXOL 350 MG/ML 100 ML VIAL. IV ONE (15:15)
[2021-08-27] MEDS ORDERED: CONTRAST GIVEN. MC PRN (15:15)
--- NOTE | 2021-08-27 15:27 | EKG ---
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
--- NOTE | 2021-08-27 16:12 | RAD ---
CTA HEAD AND NECK W/WO CONTRAST History: Left facial sensory deficit. Decreased left upper extremity motor strength. Technique: After bolus of intravenous contrast, volumetric CT data acquisition was acquired of the he ad and neck. Multiplanar reconstruction images to include MIP and 3-D reconstruction images are submi tted. Any determination of stenosis is based on NASCET criteria. Comparison: CT head 08/27/2021. Findings: Angiogram neck: Aortic arch: Normal caliber. Three-vessel configuration Common carotid arteries: No stenosis, occlusion or dissection. Internal carotid arteries: No stenosis, occlusion or dissection. External carotid arteries: Patent Vertebral arteries: No stenosis, occlusion or dissection. Angiogram head: ICA: No stenosis, occlusion or aneurysm. MCA: No stenosis, occlusion or aneurysm. AJAY: Diminutive right A1 segment with normally enhancing right AJAY distal to the anterior communicati ng. No left AJAY stenosis, occlusion or aneurysm. TRANSITION RN: No stenosis, occlusion or aneurysm. Basilar artery: No stenosis, occlusion or aneurysm. Distal vertebral arteries: No stenosis, occlusion or aneurysm. Other: Imaged lung apices are unremarkable. Soft tissues appear normal. No pathologic osseous lesions. Impression: 1. Diminutive right A1 segment with normally enhancing right AJAY distal to the anterior communicatin g is favored to be variant anatomy, however a A1 segment occlusion is not excluded. 2. No stenosis, occlusion or dissection in the cervical arteries. Findings discussed with Dr. Knight at 08/27/2021 4:07 PM. FOR INTERNAL CODING PURPOSES RESULT CODE: (C) Exposure: One or more of the following individualized dose reduction techniques were utilized for thi s examination: 1. Automated exposure control 2. Adjustment of the mA and/or kV according to patient size 3. Use of iterative reconstruction technique. Electronically signed by: Bismark Wolf MD (08/27/2021 4:10 PM) [id number]
[2021-08-27] MEDS ORDERED: ACETAMINOPHEN 325 MG TABLET PO PRN (17:45)
[2021-08-27] MEDS ORDERED: NITROGLYCERIN SUBLINGUAL 0.4 MG BOTTLE OF 25. SL PRN (17:45)
[2021-08-27] MEDS ORDERED: CLOPIDOGREL BISULFATE 75 MG TABLET PO ONE (17:45)
--- NOTE | 2021-08-27 18:45 | NUR ---
The patient, JEANNINE HORTON, 45 y/o, F admitted by RAN ANDREWS MD, was given written information regarding hospital policies, unit procedures and contact persons. Pt arrived just prior to shift change, report received from CHRISTINA Lemus. Pt here for AMS, TIA. Pt reports intermittent slurred speech, left facial numbness, and left arm/leg weakness since yesterday. Symptoms have since resolved and swallowing is intact. Pt reports prior TIA last year. Pt highly anxious and c/o not being offered anything to eat or drink all day. Box lunch and water provided per request. Dr. Salinas notified of consult, will see in AM. Home meds and PMH reviewed with pt. Dr. Andrews paged and call back received, went over home meds and partial list has been continued for tonight. POC discussed with pt and her Urban (over phone), V/U. Call light in reach. Valuables were checked and logged. Home meds in in weekly pill organizer placed in med room for safe keeping. All other belongings left at bedside.
[2021-08-27 19:29] VITALS: BP 145/90
[2021-08-27 20:00] VITALS: BP 162/90
[2021-08-27] MEDS ORDERED: LAMO150T4 PO (20:49)
[2021-08-27] MEDS ORDERED: BACL20TA PO (20:49)
[2021-08-27] MEDS ORDERED: TORS20TA2 PO (20:49)
[2021-08-27] MEDS ORDERED: BUSP10TA PO (20:49)
[2021-08-27] MEDS ORDERED: TRAZ150T49 PO (20:49)
[2021-08-27] MEDS ORDERED: OXCA600T9 PO (20:50)
[2021-08-27] MEDS ORDERED: PANT40TA6 PO (20:50)
[2021-08-27] MEDS ORDERED: BUDE0.5A11 NEB (20:50)
[2021-08-27] MEDS ORDERED: CHLO50TA PO (20:50)
[2021-08-27] MEDS ORDERED: POTA-121 PO (20:50)
[2021-08-27] MEDS ORDERED: ALPR1TAB6 PO (20:50)
[2021-08-27] MEDS ORDERED: ATOR40TA59 PO (20:50)
[2021-08-27] MEDS ORDERED: DICL1TAB50 PO (20:50)
[2021-08-27] MEDS ORDERED: VENL75CA6 PO (20:50)
[2021-08-27] MEDS ORDERED: OXYB-36 PO (20:50)
[2021-08-27] MEDS ORDERED: METO-239 PO (20:50)
[2021-08-27 21:00] VITALS: BP 150/99
[2021-08-27] MEDS ORDERED: traZODone 150 MG TABLET. PO SCH (21:00)
[2021-08-27] MEDS: BACLOFEN 20 MG TABLET PO SCH (21:28)
[2021-08-27] MEDS: busPIRone 10 MG TABLET. PO SCH (21:28)
[2021-08-27] MEDS: ASPIRIN ENTERIC COATED 81 MG TABLET.DR. PO SCH (21:28)
[2021-08-27] MEDS: lamoTRIgine 100 MG TABLET. PO SCH (21:28)
[2021-08-27 22:11] VITALS: BP 122/83
[2021-08-27 23:00] VITALS: BP 143/67
[2021-08-28] VITALS (11 sets, daily range): BP systolic 126–163; BP diastolic 70–91
[2021-08-28] MEDS: ASPIRIN ENTERIC COATED 81 MG TABLET.DR. PO SCH (07:53)
[2021-08-28] MEDS: BACLOFEN 20 MG TABLET PO SCH (07:54)
[2021-08-28] MEDS: busPIRone 10 MG TABLET. PO SCH (07:54)
[2021-08-28] MEDS: lamoTRIgine 100 MG TABLET. PO SCH (07:54)
--- NOTE | 2021-08-28 10:33 | HP ---
ADMIT DATE: 08/27/2021 ATTENDING PHYSICIAN: Dr. Stanford. CHIEF COMPLAINT: Slurred speech and weakness. HISTORY OF PRESENT ILLNESS: The patient is a 45-year-old female admitted through the ED with workup of stroke. She has symptoms of TIAs. Her daughter noticed that her words were slurred. She had some left facial droop, left arm and lower leg weakness. EMS was called. She had an extensive workup in the ED, glucose and vitals were within normal range. The obligatory CT of the head showed no evidence of a stroke. Interesting enough, a year ago, she had a TIA at that time, she had TPA done at an outside hospital. She is hypertensive. She is morbidly obese. She is admitted then for observation and formal neurologic consultation. PAST MEDICAL HISTORY: Significant for bipolar disorder, major depression, anxiety, hypertension, chronic pain syndrome and morbid obesity in excess of 440 pounds. She has had a previous appendectomy, cholecystectomy, , hysterectomy, lap band surgery and gaining all her weight back. SOCIAL HISTORY: She is a smoker. She does not use any alcohol use. FAMILY HISTORY: Noncontributory. REVIEW OF SYSTEMS: Significant for the problems that brought her to the ED. She had no recent travel, fevers, chills or COVID exposure. All other systems reviewed and turned to be negative. PHYSICAL EXAMINATION: GENERAL: When I saw her, this is a pleasant, alert young female. VITAL SIGNS: Initial vital signs showed a blood pressure of 140/85, pulse is 106 and regular. She was afebrile, oxygen saturation 97% on 4 liters by nasal cannula. HEENT: Head is without trauma. Pupils are reactive. Sclerae nonicteric. Oropharynx is clear. NECK: Supple, no bruits. LUNGS: Clear. CARDIOVASCULAR: Showed regular heart tones. ABDOMEN: Morbidly obese, protuberant. We cannot assess any organ enlargement. Bowel sounds are normoactive. EXTREMITIES: Show trace edema. NEUROLOGIC: Focally intact. Speech is fluent. PERTINENT LABORATORY STUDIES: Admission hemoglobin was 10.7 g/dL with a white count of 9700. Electrolytes within normal range. Creatinine is 0.7 mg percent. Troponin levels were negative. Serology negative for coronavirus. CT of the head and neck CTA was nondiagnostic. No new or bleeds or strokes were identified. ASSESSMENT: 1. This 45-year-old female has symptoms of transient ischemic attack, resolved. 2. Morbid obesity. 3. Previous lap band surgery. 4. Bipolar disorder. 5. Underlying depression with anxiety. 6. Essential hypertension. PLAN: 1. Observation status. 2. Formal neurologic consultation. 3. Continue home meds. TANIA/UZMA DR: Ghazal TID: [id number] CC: Candace Farias
--- NOTE | 2021-08-28 13:28 | DS ---
DATE OF DISCHARGE: 08/28/2021 ATTENDING PHYSICIAN: Dr. Stanford. FINAL DISCHARGE DIAGNOSES: 1. Transient ischemic attack symptoms, resolved. 2. Morbid obesity. 3. Essential hypertension. 4. Bipolar disorder. 5. Previous history of transient ischemic attacks, necessitated use of TPA. 6. Previous lap band surgery. 7. Anxiety with depression. HISTORY OF PRESENT ILLNESS: The patient is a 45-year-old female who has multiple medical issues. She weighs 194 kg, which amounts about 430 pounds. She had a facial droop and slurred speech. Workup in the ED was negative for stroke. She was admitted overnight, one dose of Plavix was administered. She also had formal neurologic consultation. PHYSICAL EXAMINATION: Please see the dictated note. PERTINENT LABORATORY AND X-RAY STUDIES: The obligatory CT of the head showed no acute strokes or bleeds. We do not have MRI capabilities at this [facility]. Her coronavirus screen was negative. Hemoglobin 10.7 grams per deciliter, white count 9700. Electrolytes within normal range. Cardiac enzymes negative for coronary ischemia. Nonfasting blood sugar 125. COURSE IN THE HOSPITAL: The patient was admitted. Formal neurologic consultation per Dr. Salinas is on the chart. We continued aspirin, Plavix is not needed at this time. She got better. She had no further symptoms. Regarding her morbid obesity, we had a long discussion, she still requires the laparoscopic gastric bypass surgery for any hope of losing weight. She will discuss this with her primary care physician for the appropriate referral. She is currently on Medicare. Therefore, on the second hospital day, she is discharged home with no new medications. DISCHARGE MEDICATIONS: Will include the following: She should continue her alprazolam p.r.n., Lipitor, budesonide, BuSpar, calcium, chlorthalidone, Lamictal, metoprolol, oxcarbazepine, oxybutynin, Protonix, potassium, Demadex, trazodone and Effexor, doses unchanged. For now, we held her diclofenac and her baclofen. Her prognosis is guarded. She was discharged from our hospital in stable condition with explicit drug and followup care. JOSEPHINE DR: Ghazal TID: [id number] CC: Dr. Candace Farias
--- NOTE | 2021-08-28 23:53 | CONS ---
DATE OF CONSULTATION: 08/27/2021 NEUROLOGICAL CONSULTATION CHIEF COMPLAINT: Headaches, nausea, left facial and upper and lower extremity weakness. HISTORY OF PRESENT ILLNESS: This is a 45-year-old right-handed female has had longstanding history of bipolar disorders, anxiety disorders, and morbid obesity, who was admitted through Emergency Room to rule out a stroke versus a TIA. According to the patient, she was at home when she started a sudden onset of slurred speech, witnessed by her daughter. The patient did not recognize that. However, she was told by her daughter that she had a drooping of the left face and weakness of the left upper and lower extremities. EMS was activated and sent the patient to Emergency Room. On arrival, the patient was found to have a blood pressure of 125/76. She was able to walk, but she complains of global headaches associated with nausea. The patient states she had similar episode a year ago when she was investigated extensively at [facility] and had a normal head CT scan and a normal MRI. The patient stated she was placed on a baby aspirin. Recently, she has been seen by a a p manager in [facility] to rule out congestive heart failure. Currently, the patient denies chest pain, shortness of breath, or palpitation. She complains of anxiety disorder, resulted in intermittent tremor of the extremities. On arrival to the Emergency Room, initial nonenhanced head CT scan revealed no intracranial abnormalities and a CT angio of the neck and the brain revealed no stenosis or occlusion in the cervical arteries and possible diminutive right A1 segment with normal enhancement of the right AJAY and questionable of a variant anatomy. The patient has not had any recurrent or new neurological complaints since admission. The patient stated she got COVID-19 infections 2 months ago. PAST MEDICAL HISTORY: Significant for morbid obesity, bipolar disorders, depressions, anxiety disorders, hypertension, asthma, sleep apnea, hemorrhoids, chronic low back pain and intermittent headaches with deviated symptoms. PAST SURGICAL HISTORY: Positive for appendectomy, cholecystectomy, and with hysterectomy. FAMILY HISTORY: Father had pulmonary embolism. Mother had hypertension. Family history of Parkinson disease and coronary artery disease. SOCIAL HISTORY: The patient is a smoker, but she says she quit smoking in 2013. She denies alcohol use. CURRENT HOME MEDICATIONS: Oxcarbazepine 600 mg b.i.d., lamotrigine 150 mg b.i.d., trazodone 150 mg at bedtime, BuSpar 10 mg t.i.d., baclofen 20 mg b.i.d., aspirin 81 mg daily, nitroglycerin 0.4 p.r.n. for chest pain, and Tylenol p.r.n. ALLERGIES: BUCKWHEAT. PHYSICAL EXAMINATION: GENERAL: Morbidly obese female. She weighs 194.1 kilos. VITAL SIGNS: Blood pressure 137/80, respiratory rate 23, pulse is 105, regular, oxygen saturation is 97% on 4 liters by nasal cannula and temperature is 98.7. HEENT: Normocephalic, atraumatic, otherwise unremarkable. NECK: Supple, negative for carotid bruit, lymphadenopathy, or thyromegaly. LUNGS: Clear to A and P. CARDIAC: Regular rate and rhythm, normal S1, S2. ABDOMEN: Soft. EXTREMITIES: Negative for cyanosis, clubbing, or edema. NEUROLOGIC: Mental status: The patient is alert and oriented x 3. The speech is fluent. There is no language dysfunction. Memory, judgment and abstracting thinking are normal. The patient denies hallucination or delusion. Cranial nerves: Visual layne are full. The pupils are reactive to light and accommodation. Extraocular movements are intact. There is no nystagmus. There is no facial motor or sensory deficit. Hearing is intact bilaterally. The palate is elevated symmetrically. Sternocleidomastoid muscles are powerful bilaterally. The patient shrugs her shoulders symmetrically and protrudes her tongue in the midline without fasciculation or atrophy. Motor Examination: No focal muscle bulk wasting. The tone is normal. The strength is 4/5 throughout. Sensory examination revealed a normal pinprick, light touch, vibratory, and position senses. Deep tendon reflexes were symmetric and hypoactive with absent Achilles responses. Gait: The stance is steady. LABORATORY DATA: CBC revealed blood cells of 9.7 thousand, hemoglobin 10.7, hematocrit 33.2, platelet count at 415,000. Chemistry revealed sodium of 139, potassium 3.3, chloride 98, CO2 of 33, BUN 12, creatinine 0.7, glucose 125 and calcium 9.3. Troponin level is normal. Coagulation is normal. COVID rapid and PCR are negative. ASSESSMENT AND PLAN: 1. Questionable transient ischemic attack with normal CT angio of the neck and head. 2. Hypertension. 3. Multiple psychiatric problems including bipolar disorders, anxiety, and depressions. 4. Obstructive sleep apnea, required oxygen administration. RECOMMENDATIONS: 1. Aggressive weight loss. 2. Continue her aspirin 81 mg daily. 3. To obtain medical record from [facility] regarding previous workup for TIA including a carotid Doppler study and a brain MRI. 4. Continue her current medications. 5. To follow up with her a p manager in [facility] after discharge. ONEAL DR: Trinity TID: [id number]
== END 2021-08-28 11:55 | disposition home or self-care (01) ==
LOC: ER 14:26 → INTOOBSV 17:43 → ICU 17:43
PROVIDERS: ADMIT Hospitalist; ATTEND Hospitalist
DX: G45.9 Transient cerebral ischemic attack, unspecified (principal); Z20.822 Contact with and (suspected) exposure to COVID-19; I10 Essential (primary) hypertension; F31.9 Bipolar disorder, unspecified; E66.01 Morbid (severe) obesity due to excess calories; E78.00 Pure hypercholesterolemia, unspecified; F41.8 Other specified anxiety disorders; G47.33 Obstructive sleep apnea (adult) (pediatric); G89.4 Chronic pain syndrome; J45.909 Unspecified asthma, uncomplicated; R29.810 Facial weakness; F17.210 Nicotine dependence, cigarettes, uncomplicated; Z79.82 Long term (current) use of aspirin; Z79.899 Other long term (current) drug therapy; Z86.73 Personal history of transient ischemic attack (TIA), and cerebral infarction without residual deficits; Z90.49 Acquired absence of other specified parts of digestive tract; Z90.710 Acquired absence of both cervix and uterus; Z98.84 Bariatric surgery status; Z98.890 Other specified postprocedural states; Z68.45 Body mass index [BMI] 70 or greater, adult; Z98.891 History of uterine scar from previous surgery
CPT/HCPCS: 36415; 70450; 70496; 70498; 80048; 80061; 84484; 85025; 85610; 85730; 87426; 93005; 96374; 97110; 97162; 97165; 99285; G0378; J2060; Q9967; U0003; 82947; 96375; G0379

== ENCOUNTER 2022-02-17 12:27 | Emergency (ER) | payer OTHER, MEDICARE ==
[~2022-02-17] VITALS: Ht 165.1 cm; Wt 194.1 kg
[~2022-02-17 12:27] MED LIST changes: +ALPR1TAB6 PO; +ATOR40TA59 PO; +BACL20TA PO; +BUDE0.5A11 NEB; +BUSP10TA PO; +CHLO50TA PO; -CYCL-331 PO; +CYCL10TA19 PO; +DICL1TAB50 PO; +LAMO150T4 PO; +METO-239 PO; +OXCA600T9 PO; +OXYB-36 PO; +PANT40TA6 PO; +POTA-121 PO; +TORS20TA2 PO; +TRAZ150T49 PO; +VENL75CA6 PO
[2022-02-17 12:44] VITALS: BP 138/82
--- NOTE | 2022-02-17 12:56 | PHYS DOC ---
Past History Past Medical History: Bipolar, Depression, Hypertension Additional Past Medical Histor: Pulmonary "problems" Past Surgical History: Appendectomy, Cholecystectomy, , Hysterectomy Smoking: Cigarettes Alcohol Use: None Drug Use: None General Adult EDM: Chief Complaint: ELBOW PROBLEM HPI: HPI: Patient is a 46-year-old female who presents to the emergency department for left elbow and forearm pain. Patient is unsure if she injured it when she was getting out of her car yesterday but she does not recall any injury or fall. She denies any decreased range of motion or decrease sensation in her extremity but reports that small area of swelling to her left forearm. Review of Systems: Review of Systems: Musculoskeletal: See HPI Integument: See HPI Neurologic: See HPI Allergies: Allergies: Allergies Coded Allergies Type Severity Reaction Last Updated Verified buckwheat Allergy Severe sob 11/10/17 Yes Physical Exam: PE: Constitutional: Well developed, well nourished, no acute distress, non-toxic appearance. [] HENT: Normocephalic, atraumatic, bilateral external ears normal, oropharynx moist, no oral exudates, nose normal. [] Eyes: PERRL, EOMI, conjunctiva normal, no discharge. [] Neck: Normal range of motion, no stridor Cardiovascular: Normal peripheral perfusion Lungs & Thorax: Normal work of breathing, wears portable oxygen at all times Abdomen: Soft and obese Skin: Warm, dry, no erythema, no rash. [] Back: Normal range of motion Extremities: No tenderness, no cyanosis, no clubbing, ROM intact, no edema. [] Left elbow: Range of motion intact, neuro intact, no obvious deformity, no crepitus. Left forearm: small area of swelling noted to the back of patient's left forearm, no obvious deformity, no wounds/ecchymosis Neurologic: Alert and oriented X 3, normal motor function, normal sensory function, no focal deficits noted. [] Psychologic: Affect normal, judgement normal, mood normal. [] EKG: EKG: [] Radiology/Procedures: Radiology/Procedures: []REASON: forearm pain, injury tuesday, arm stuck/smashed PROCEDURE: FOREARM LEFT Left elbow 3 views, left forearm 2 views. HISTORY: Injured Tuesday, pain Left elbow 3 views were taken of the left elbow. There is no fracture or osseous abnormality. Fat pads at the elbow are not displaced. Left forearm 2 views were taken of the left forearm. There is not evidence of an acute fracture or osseous abnormality. IMPRESSION: 1. No fracture or osseous abnormality left forearm. 2. No fracture or acute osseous abnormality left elbow. Electronically signed by: Fede Zavala MD (02/17/2022 1:15 PM) [id number] DICTATED AND SIGNED BY: FEDE ZAVALA MD DATE: 02/17/22 0481 CC: CONSUELO GORMAN APRN; [facility] OSBORN ~ Heart Score: C/O Chest Pain: N/A Risk Factors: Risk Factors: DM, Current or recent (<one month) smoker, HTN, HLP, family history of CAD, obesity. Risk Scores: Score 0 - 3: 2.5% MACE over next 6 weeks - Discharge Home Score 4 - 6: 20.3% MACE over next 6 weeks - Admit for Clinical Observation Score 7 - 10: 72.7% MACE over next 6 weeks - Early Invasive Strategies Course & Med Decision Making: Course & Med Decision Making Pertinent Labs and Imaging studies reviewed. (See chart for details) [] Patient resents emergency department for left elbow and forearm pain. Patient is unsure of any injury. Imaging was performed in the ER that showed no acute findings. Patient given ice pack. Patient advised to take Tylenol and ibuprofen for her pain. I discussed with patient all findings and diagnostic testing as well as the need to follow-up with PCP for further evaluation and treatment or return to the ER if any new or worsening symptoms. Strict return precautions were also discussed at length. Patient voiced understanding and agreement with the plan. Patient is hemodynamically stable at the time of disposition. Dragon Disclaimer: Dragbrigida Disclaimer: This electronic medical record was generated, in whole or in part, using a voice recognition dictation system. Departure Departure: Impression: Primary Impression: Arm pain Qualified Codes: M79.602 - Pain in left arm Disposition: HOME / SELF CARE / HOMELESS Condition: GOOD Referrals: MENDOZA OSBORN (PCP) Patient Instructions: RICE - Routine Care for Injuries, [id number] Additional Instructions: You were seen in the emergency department today for arm pain. Imaging was performed showed no acute findings. Please take Tylenol and ibuprofen for pain. You can also apply ice. Follow-up with your primary care provider within a week regarding your ER visit. Return to the emergency department if you develop worsening of your pain, decreased range of motion or decreased sensation in your arm. CONSUELO GORMAN PIPE BLANKS CUT OFF SAW OPERATOR Feb 17, 2022 12:56
--- NOTE | 2022-02-17 13:17 | RAD ---
Left elbow 3 views, left forearm 2 views. HISTORY: Injured Tuesday, pain Left elbow 3 views were taken of the left elbow. There is no fracture or osseous abnormality. Fat pads at the el bow are not displaced. Left forearm 2 views were taken of the left forearm. There is not evidence of an acute fracture or osseous abnorma lity. IMPRESSION: 1. No fracture or osseous abnormality left forearm. 2. No fracture or acute osseous abnormality left elbow. Electronically signed by: Fede Hodges MD (02/17/2022 1:15 PM) [id number]
== END 2022-02-17 13:47 | disposition home or self-care (01) ==
LOC: ER 12:27
DX: M79.632 Pain in left forearm (principal); M25.522 Pain in left elbow; G89.11 Acute pain due to trauma; F31.9 Bipolar disorder, unspecified; I10 Essential (primary) hypertension; F17.210 Nicotine dependence, cigarettes, uncomplicated; W23.0XXA Caught, crushed, jammed, or pinched between moving objects, initial encounter; Y93.89 Activity, other specified; Y92.89 Other specified places as the place of occurrence of the external cause; Y99.8 Other external cause status
CPT/HCPCS: 73080; 73090; 99284